=== PATIENT | female | born 1955 | race Caucasian/White ===

== ENCOUNTER 2023-04-24 12:57 | Outpatient (RCR) | payer MEDICARE, OTHER, SELFPAY | END 2023-04-24 23:59 | disposition home or self-care (01) | LOC: ROT 12:57 | PROVIDERS: ATTENDING PHYSICIAN Family Medicine | DX: I69.354 Hemiplegia and hemiparesis following cerebral infarction affecting left non-dominant side (principal); I69.398 Other sequelae of cerebral infarction; I69.310 Attention and concentration deficit following cerebral infarction; I69.318 Other symptoms and signs involving cognitive functions following cerebral infarction; Z73.6 Limitation of activities due to disability | CPT/HCPCS: 97110; 97112; 97116 ==

== ENCOUNTER → 2023-05-11 06:16 | Day surgery (SDC) | payer MEDICARE, OTHER, SELFPAY | LOC: GI 06:16 | PROVIDERS: ATTENDING PHYSICIAN Internal Medicine Gastroenterology | DX: Z12.11 Encounter for screening for malignant neoplasm of colon (principal) | CPT/HCPCS: G0105 ==

== ENCOUNTER → 2023-05-17 13:27 | Outpatient (REF) | payer MEDICARE, OTHER, SELFPAY ==
[2023-05-17 14:08] LABS: % Basophils 0.8 % (0-2); % Eosinophils 3.1 % (0-6); % Immature Granulocytes 0.3 % (0-0.5); % Monocytes 8.3 % (1.7-9.3); % Neutrophils 69.5 % (42.2-75.2); Absolute Eosinophils 0.1 10^3/uL (0-0.7); Absolute Lymphocytes 0.7 10^3/uL (1.2-3.4); Absolute Monocytes 0.3 10^3/uL (0.1-0.6); Absolute Neutrophils 2.7 10^3/uL (1.4-6.5); Hematocrit 31.4 % (37.0-47.0); Hemoglobin 10.6 g/dL (12.0-16.0); Mean Corp Hgb Conc. 33.8 g/dL (33.0-37.0); Mean Corpuscular Hgb 31.1 pg (27.0-31.0); Mean Corpuscular Volume 92.1 fL (81.0-99.0); Mean Platelet Volume 10.7 fL (7.4-10.4); Nucleated Red Blood Cells % 0 %; Platelet Count 236 10^3/uL (130-400); Red Blood Cell Count 3.41 10^6/uL (4.20-5.40); Red Cell Dist. Width 14.1 % (11.5-14.5); White Blood Cell Count 3.8 10^3/uL (4.8-10.8)
[2023-05-17 14:25] LABS: ALT (SGPT) 49 U/L (0-35); AST (SGOT) 43 U/L (14-36); Alkaline Phosphatase 47 U/L (38-126); Blood Urea Nitrogen 18 mg/dl (7-17); Calcium 8.7 mg/dl (8.4-10.2); Carbon Dioxide 26 mmol/L (22-30); Chloride 100 mmol/L (98-107); Glucose 91 mg/dl (70-99); Potassium 4.1 mmol/L (3.5-5.1); Sodium 130 mmol/L (135-145); Total Bilirubin 0.4 mg/dl (0.2-1.3); eGFR > 60.00
[2023-05-17 14:26] LABS: Erythrocyte Sed Rate 8 mm/hour (0-20)
[2023-05-20 07:55] LABS: ANA, IgG Reflex to HEp-2 None Detected (None Detected)
== END ==
LOC: REG 13:27
PROVIDERS: ATTENDING PHYSICIAN Internal Medicine; FAMILY PHYSICIAN Family Medicine
DX: G89.29 Other chronic pain (principal); I61.9 Nontraumatic intracerebral hemorrhage, unspecified; M19.90 Unspecified osteoarthritis, unspecified site; M32.9 Systemic lupus erythematosus, unspecified; M54.40 Lumbago with sciatica, unspecified side; M79.641 Pain in right hand; M79.642 Pain in left hand
CPT/HCPCS: 36415; 80053; 85025; 85652; 86038; 86140

== ENCOUNTER 2023-05-24 11:06 | Outpatient (RCR) | payer MEDICARE, OTHER, SELFPAY | END 2023-05-24 23:59 | disposition home or self-care (01) | LOC: ROT 11:06 | PROVIDERS: ATTENDING PHYSICIAN Family Medicine | DX: I69.354 Hemiplegia and hemiparesis following cerebral infarction affecting left non-dominant side (principal); I69.310 Attention and concentration deficit following cerebral infarction; I69.318 Other symptoms and signs involving cognitive functions following cerebral infarction; I69.398 Other sequelae of cerebral infarction; Z73.6 Limitation of activities due to disability; R26.89 Other abnormalities of gait and mobility | CPT/HCPCS: 97110; 97112; 97116 ==

== ENCOUNTER → 2023-05-24 12:20 | Outpatient (REF) | payer MEDICARE, OTHER, SELFPAY ==
[2023-05-24 13:39] LABS: % Basophils 0.8 % (0-2); % Eosinophils 3.5 % (0-6); % Immature Granulocytes 0.3 % (0-0.5); % Lymphocytes 19.2 % (20.5-51.1); % Monocytes 10.4 % (1.7-9.3); % Neutrophils 65.8 % (42.2-75.2); Absolute Eosinophils 0.1 10^3/uL (0-0.7); Absolute Lymphocytes 0.7 10^3/uL (1.2-3.4); Absolute Monocytes 0.4 10^3/uL (0.1-0.6); Absolute Neutrophils 2.5 10^3/uL (1.4-6.5); Hematocrit 32.8 % (37.0-47.0); Mean Corp Hgb Conc. 33.5 g/dL (33.0-37.0); Mean Corpuscular Hgb 31.3 pg (27.0-31.0); Mean Corpuscular Volume 93.4 fL (81.0-99.0); Nucleated Red Blood Cells % 0 %; Platelet Count 234 10^3/uL (130-400); Red Blood Cell Count 3.51 10^6/uL (4.20-5.40); Red Cell Dist. Width 14.1 % (11.5-14.5); White Blood Cell Count 3.8 10^3/uL (4.8-10.8)
[2023-05-24 14:05] LABS: ALT (SGPT) 32 U/L (0-35); AST (SGOT) 30 U/L (14-36); Alkaline Phosphatase 43 U/L (38-126); Blood Urea Nitrogen 24 mg/dl (7-17); Calcium 9.5 mg/dl (8.4-10.2); Carbon Dioxide 28 mmol/L (22-30); Chloride 98 mmol/L (98-107); Glucose 78 mg/dl (70-99); Potassium 4.2 mmol/L (3.5-5.1); Sodium 134 mmol/L (135-145); Total Bilirubin 0.5 mg/dl (0.2-1.3); eGFR > 60.00
[2023-05-24 14:17] LABS: Erythrocyte Sed Rate 8 mm/hour (0-20)
== END ==
LOC: REG 12:20
PROVIDERS: ATTENDING PHYSICIAN Internal Medicine; FAMILY PHYSICIAN Family Medicine
DX: I61.9 Nontraumatic intracerebral hemorrhage, unspecified (principal); G89.29 Other chronic pain; M19.90 Unspecified osteoarthritis, unspecified site; M54.40 Lumbago with sciatica, unspecified side; M79.641 Pain in right hand; M79.642 Pain in left hand
CPT/HCPCS: 36415; 80053; 85025; 85652; 86140

== ENCOUNTER → 2023-06-01 15:49 | Outpatient (REF) | payer MEDICARE, OTHER, SELFPAY ==
[2023-06-01 16:35] LABS: Urine Albumin Trace (Neg - Trace); Urine Bilirubin Negative (Negative); Urine Character Clear (Clear); Urine Color Yellow; Urine Glucose Negative (Negative); Urine Ketone Negative (Negative); Urine Leukocyte Negative (Negative); Urine Nitrite Negative (Negative); Urine Occult Blood Negative (Negative); Urine Specific Gravity 1.025 (<1.030); Urine Urobilinogen Negative (Neg - 1+)
== END ==
LOC: REG 15:49
PROVIDERS: ATTENDING PHYSICIAN Obstetrics & Gynecology; FAMILY PHYSICIAN Family Medicine
DX: N39.0 Urinary tract infection, site not specified (principal)
CPT/HCPCS: 81003; 87086

== ENCOUNTER → 2023-06-08 11:53 | Outpatient (REF) | payer MEDICARE, OTHER, SELFPAY | LOC: RAD 11:53 | PROVIDERS: ATTENDING PHYSICIAN Emergency Medicine; FAMILY PHYSICIAN Family Medicine | DX: S79.911A Unspecified injury of right hip, initial encounter (principal) | CPT/HCPCS: 73502 ==

== ENCOUNTER 2023-06-10 17:54 | Emergency (ER) | payer MEDICARE, OTHER, SELFPAY ==
[2023-06-10 17:55] VITALS: BP 167/94
[2023-06-10 19:47] VITALS: BP 137/69
--- NOTE | 2023-06-10 20:00 | EDRN ---
Pt came out of room with coat on while this RN printed radiology paper for pt to go to CT. Pt was going to leave 'I'm sure I'm fine. It's been 2 hours and if there's a bleed, there's nothing that can be done.' This RN encouraged pt to stay and
have the CT done. Pt agreeable and was wheeled to CT by EDT.
--- NOTE | 2023-06-10 20:48 | EDRN ---
Pt came out of the room and said she was leaving. Reminded pt this RN just told Nilda Painting NP that the CT reports are read. Pt said she was going to leave anyway 'It's already been 3 hours.' This RN asked pt to stay a little longer since she has
waited this long to get her results, give Nilda Painting NP a chance to give her the results. Pt declined stating 'I'm sure everything is fine, I'm just going to go.' Despite multiple attempts to get pt to stay for results, pt left ambulatory using a
cane. Gait steady.
--- NOTE | 2023-06-10 20:53 | ED.GENMED ---
History of Present Illness
General
Chief Complaint: Fall
Source: patient
Exam Limitations: none
Time Seen by Provider: 06/10/23 18:11
Nursing documentation reviewed up to this point in time: agreed with
Travel History
Have you had any contact with someone who has COVID-19?: No
Do you have any symptoms of coronavirus? Fever > 100 degrees, chills, cough, shortness of breath, sore throat, loss of taste or smell, muscle aches, or headache?: No
History of Present Illness
History of Present Illness:
Patient is a 67-year-old female who was outside at a park and fell back hitting her head on grass. She reports it was very windy she has a history intracranial hemorrhage with left-sided weakness and with the wind and her balance she fell back.
She denies any headache however after having history of intracranial hemorrhage in the past she presented to the ER for evaluation of head injury. She is not on blood thinners. She denies any headache loss of consciousness nausea vomiting. Denies
any extremity injury. Patient reports she landed on her right side but denies any actual bony pain.
Past History
Past History
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
ED Past Surgical History: (X 3) and Other (Surgery for deviated septum, bilateral foot surgery, Brain surgerym facial surgery )
Social History
Tobacco: Former smoker
Alcohol: None
Personal:
Living: assisted living
Review of Systems
Review of Systems
Allergies reviewed?: Yes
All Other Systems: ROS reviewed and negative except as documented in HPI and ROS
Constitutional: Reports no symptoms
Respiratory: Reports no symptoms
Cardiac: Reports no symptoms
ABD/GI: Reports no symptoms; Denies nausea or vomiting
Musculoskeletal: Denies neck pain or back pain
Skin: Reports no symptoms
Neurological: Reports no symptoms; Denies dizzy, headache or weakness
Hematologic/Lymphatic: Reports no symptoms
Phy Exam
General Physical Exam
General Presentation: no apparent distress
General age: appears stated age
General Skin: warm and dry
General Habitus: normal
General Mental: alert
General Hydration: appears well hydrated
Eye Exam
Eye Exam: PERRL and EOMI
Eye Exam General: PERRL: bilateral and EOM intact: bilateral
Pupil Exam: Bilateral: round and reactive
Neurological Exam
Neurological Exam: alert and oriented x3
[place] Coma Scale
Eye Opening: Spontaneous
Verbal Response: Oriented
Motor Response: Obeys Commands
GCS Total Score: 15
Musculoskeletal Exam
Musculoskeletal Exam: other (Full range of motion all extremities no bony tenderness no obvious head injury on exam no bony cervical thoracic or lumbar tenderness)
Skin Exam
Skin Exam: normal color and warm/dry
Psychiatric Exam
Psychiatric Exam: normal mood/affect
Course
Orders/Labs/Results
Orders:
Orders
06/10/23 18:[address] Cervical Spine W/o Iv Contr Urgent
Comment:
Reason For Exam: trauma
CT Head W/o Iv Contrast Urgent
Comment:
Reason For Exam: trauma
Vital Signs
Initial and Last Documented VS:
Initial Vital Signs
Temp Pulse Resp BP Pulse Ox
97.8 F 65 18 167/94 99
06/10/23 17:55 06/10/23 17:55 06/10/23 17:55 06/10/23 17:55 06/10/23 17:55
Last Documented Vital Signs
Temp Pulse Resp BP Pulse Ox
97.8 F 79 14 137/69 97
06/10/23 17:55 06/10/23 19:47 06/10/23 19:47 06/10/23 19:47 06/10/23 19:47
MDM/Problems Addressed
Differential Diagnosis Includes:
Not limited to head injury, intracranial hemorrhage less likely cervical injury
MDM/Problems Addressed:
Patient is a 67-year-old female not on blood thinners who describes mechanical fall hitting the back of her head on grass. She does have history of intracranial hemorrhage and presented to the ER for evaluation. She is no longer on blood thinners
as documented. She has no headache. She presents awake alert no acute distress no obvious injury on exam CT head and cervical spine negative. Patient has no bony injury. Patient left prior to receiving d/c instructions.
Chronic conditions affecting care:
History of intracranial hemorrhage in past
*Critical Care Note
Total Time (30-74mins, 75-104mins- exclusive of procedures): Not Applicable
ED Attending Note
-
Portions of this chart may have been created with voice recognition software.� Occasional wrong word or��sound alike� substitutions may have occurred due to the inherent limitations of voice recognition software.
Discharge Plan
Departure
Patient Disposition: Home (Routine Discharge)
Date of Disposition: 06/10/23
Time of Disposition: 21:40
Patient with high blood pressure during this ER visit?: Yes
Covid-19: Not Applicable
Discharge Problem:
Head injury
Instructions: Head Injury in Adults (DC), BLOOD PRESSURE
Prescriptions:
No Action
vilazodone [Viibryd] 40 MG tablet
40 mg PO DAILY
atorvastatin 20 mg tablet
20 mg PO QPM
famotidine 40 mg tablet
40 mg PO BID
alendronate 70 mg tablet
70 mg PO MO
potassium chloride 10 mEq tablet extended release
10 meq PO QPM
hydrocodone-acetaminophen 10-325 mg tablet
1 tab PO Q6HPRN PRN (Reason: moderate pain)
Rx Instructions:
01/04/23 filled on 01/02/23 # 120
quetiapine 25 mg Tablet
25 mg PO HSPRN PRN (Reason: sleep)
baclofen 10 mg Tablet
10 mg PO TID
gabapentin 100 mg Capsule
100 mg PO QIDPRN PRN (Reason: nerve pain)
timolol maleate 0.5 % Drops
1 drp LEFT EYE BID
bupropion HCl 300 mg Tablet Extended Release 24 Hr
300 mg PO DAILY
Patient Comments:
01/04/23 patient takes this along with 150 mg
bupropion HCl 150 mg Tablet Extended Release 24 Hr
150 mg PO DAILY
Patient Comments:
01/04/23 patient takes this along with 300 mg
Brainstrong Memory Support 120 mg- 110 mg Tablet
1 tab PO DAILY
labetalol 200 mg Tablet
200 mg PO TID
aspirin 81 mg Tablet,Chewable
81 mg PO DAILY Qty: 30 0RF
lisinopril 5 mg Tablet
5 mg PO DAILY Qty: 30 0RF
Referrals:
Sagar Irving DO [Family Provider] -
Activity Restrictions/Additional Instructions:
Follow-up with family doctor next 2 days for reevaluation.
return for any worsening of symptoms
Interventions
Interventions:
*Risk Screen - Suicide Last Done: 06/10/23 19:47
*General Assessment Last Done: 06/10/23 17:55
*Neglect/Abuse Screening Last Done: 06/10/23 19:47
*ED COVID-19 Vaccine History Last Done: 06/10/23 17:55
*Nursing Disposition Last Done: 06/10/23 20:48
ED- Neurological Assessment Last Done: 06/10/23 19:47
ED-Skin Assessment Last Done: 06/10/23 19:47
== END 2023-06-10 20:48 | disposition home or self-care (01) ==
LOC: EMR 17:54
PROVIDERS: EMERGENCY PHYSICIAN Emergency Medicine; FAMILY PHYSICIAN Family Medicine
DX: S09.90XA Unspecified injury of head, initial encounter (principal); W19.XXXA Unspecified fall, initial encounter; I10 Essential (primary) hypertension; Z87.891 Personal history of nicotine dependence; Z86.73 Personal history of transient ischemic attack (TIA), and cerebral infarction without residual deficits
CPT/HCPCS: 99284; 70450; 72125

== ENCOUNTER → 2023-06-21 13:08 | Outpatient (REF) | payer MEDICARE, OTHER, SELFPAY | LOC: WDC 13:08 | PROVIDERS: ATTENDING PHYSICIAN Obstetrics & Gynecology; FAMILY PHYSICIAN Family Medicine | DX: Z12.31 Encounter for screening mammogram for malignant neoplasm of breast (principal) | CPT/HCPCS: 77063; 77067 ==

== ENCOUNTER 2023-07-01 19:03 | Inpatient (IN) | payer MEDICARE, OTHER, SELFPAY ==
[2023-07-01] VITALS (23 sets, daily range): BP systolic 104–163; BP diastolic 67–88; BMI 20.7; BMI 20.6
[2023-07-01] MEDS: DILAUDID 0.5 MG IV ×2 (16:58→22:39)
--- NOTE | 2023-07-01 17:21 | ED.MUSCINJ ---
HPI-Injury
General
Chief Complaint: Musculo-Skeletal Complaint
Source: patient
Time Seen by Provider: 07/01/23 14:39
Travel History
Have you had any contact with someone who has COVID-19?: No
Do you have any symptoms of coronavirus? Fever > 100 degrees, chills, cough, shortness of breath, sore throat, loss of taste or smell, muscle aches, or headache?: No
History of Present Illness-Injury
Initial Injury comments:
67-year-old female presents complaining of right wrist pain after mechanical fall earlier today. She missed a step going out of her house and fell forward and landed on her right hand. She has a history of hemorrhagic stroke leaving her with
left-sided deficit. She has no functional use of the left arm. She typically ambulates with a cane with her right hand. She lives by herself. She did not hit her head. She denies headache or neck pain. No other complaints at this time
Past History
Past History
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
ED Past Surgical History: (X 3) and Other (Surgery for deviated septum, bilateral foot surgery, Brain surgerym facial surgery )
Social History
Tobacco: Former smoker
Alcohol: None
Personal:
Living: assisted living
Phy Exam
Physical Exam
Physical Exam:
General: Well-appearing female no acute respiratory distress
HEENT: Normocephalic atraumatic
Heart: Regular rate and rhythm no murmurs
Lungs: Clear to auscultation bilaterally no wheezing
Abdomen: Soft nontender nondistended no guarding or
Musculoskeletal exam: Right wrist swollen ecchymotic and deformed. She is tender distally. She is able to move all of her fingers. The right elbow and shoulder are nontender
Neurologic: Chronic left-sided deficit noted otherwise alert and oriented good sensation to right hand
Vascular: 2+ radial pulse right wrist
Injury Course
Orders/Labs/Results
Orders:
Orders
07/01/23 14:38
Wrist, Right 3 Views [CR Wrist - Right Min 3 Views] Urgent
Comment:
Reason For Exam: fall, pain
07/01/23 16:02
Propofol [Diprivan] 20 ml .ROUTE .STK-MED
07/01/23 16:40
CR Wrist - Right Min 2 Views Urgent
Reason For Exam: post reduction
07/01/23 16:54
HYDROmorphone [Dilaudid] 0.5 mg IV NOW STA
Procedures
Moderate Sedation
ASA Risk Score: Class II
Chart and allergies reviewed: Yes
Consent for anesthesia obtained: Yes
Time out completed (validating right patient & procedure): Yes
History of difficult intubation: No
Airway free of obstruction: Yes
Patient has a gag reflex: Yes
Patient is able to open mouth: Yes
Patient has no dentures: Yes
Patient has no loose teeth: Yes
Medication administered by Provider during Moderate Sedation: IV Propofol (mg)
Total dose administered: 40
Time drug administered: 16:31
Start Time: 16:31
Stop Time: 16:37
MDM/Problems Addressed
Differential Diagnosis Includes:
Mechanical fall with right wrist pain and deformity. Question fracture versus dislocation or both.
I have personally visualized x-rays which demonstrate angulated fracture of the distal radius at extra-articular. There is no obvious associated injury to the ulnar
Discussed x-ray findings with orthopedics. It was recommended that we reduce the fracture in the emergency room. Verbal consent was obtained for moderate sedation and closed reduction. Sedation performed by emergency room attending. 40 mg of
propofol required. The wrist was reduced by this provider using hyperextension longitudinal traction and then dorsally applied pressure. The hand and arm was then wrapped in a sugar-tong fashion using cast padding 2 inch OCL and William bandages.
Postreduction films demonstrate successful reduction of the fracture.
Patient has significant medical history and social issue that poses a challenge for discharge. She lives by herself and has no left-sided function. She relies on her right hand for ambulation with a cane. Given this, discharge home would be
unsafe. Will keep in hospital for further evaluation. Ortho to see patient in the morning and recommend surgery in the next day or 2.
*Critical Care Note
Total Time (30-74mins, 75-104mins- exclusive of procedures): Not Applicable
ED Attending Note
-
Portions of this chart may have been created with voice recognition software.� Occasional wrong word or��sound alike� substitutions may have occurred due to the inherent limitations of voice recognition software.
Discharge Plan
Departure
Patient Disposition: Admit
Date of Disposition: 07/01/23
Time of Disposition: 17:26
Admit to: Med/Surg
Presentation/result/management discussed w/ accepting MD/DO: Hospitalist
Discharge Problem:
Distal radial fracture
Prescriptions:
No Action
vilazodone [Viibryd] 40 MG tablet
40 mg PO DAILY
atorvastatin 20 mg tablet
20 mg PO QPM
famotidine 40 mg tablet
40 mg PO BID
alendronate 70 mg tablet
70 mg PO MO
potassium chloride 10 mEq tablet extended release
10 meq PO QPM
hydrocodone-acetaminophen 10-325 mg tablet
1 tab PO Q6HPRN PRN (Reason: moderate pain)
Rx Instructions:
01/04/23 filled on 01/02/23 # 120
quetiapine 25 mg Tablet
25 mg PO HSPRN PRN (Reason: sleep)
baclofen 10 mg Tablet
10 mg PO TID
gabapentin 100 mg Capsule
100 mg PO QIDPRN PRN (Reason: nerve pain)
timolol maleate 0.5 % Drops
1 drp LEFT EYE BID
bupropion HCl 300 mg Tablet Extended Release 24 Hr
300 mg PO DAILY
Patient Comments:
01/04/23 patient takes this along with 150 mg
bupropion HCl 150 mg Tablet Extended Release 24 Hr
150 mg PO DAILY
Patient Comments:
01/04/23 patient takes this along with 300 mg
Brainstrong Memory Support 120 mg- 110 mg Tablet
1 tab PO DAILY
labetalol 200 mg Tablet
200 mg PO TID
aspirin 81 mg Tablet,Chewable
81 mg PO DAILY Qty: 30 0RF
lisinopril 5 mg Tablet
5 mg PO DAILY Qty: 30 0RF
Referrals:
Sagar Irving DO [Family Provider] -
Interventions
Interventions:
*Risk Screen - Suicide Last Done: 07/01/23 14:33
*General Assessment Last Done: 07/01/23 14:33
*Neglect/Abuse Screening Last Done: 07/01/23 14:33
ED- Fall Risk Assessment Last Done: 07/01/23 17:24
*ED COVID-19 Vaccine History Last Done: 07/01/23 17:24
ED-Musculoskeletal Assessment Last Done: 07/01/23 15:20
Discharge Date and Time
Print Language: MALAY
--- NOTE | 2023-07-01 18:59 | HPS.HSE ---
Family Physician
-
Family Physician: Sagar Irving
Chief Complaint
-
fall, wrist pain
History of Present Illness
Patient is a 67-year-old female who lives alone and walks with a cane. She has had a stroke in the past and has limited movement of her left arm and has a brace on her left leg. She states that since her stroke, sometimes her knee does not bend.
She stepped down and fell and landed on her right arm. She has a fracture of the distal right radius which was reduced to the emergency department. Orthopedics is aware of the patient and we are asked to admit.
Medical History
Past Medical History
Past Medical History: Reports Other
Additional Past Medical History:
Essential hypertension
Hyperlipidemia
Previous stroke
Possible rheumatoid arthritis undiagnosed
Osteoporosis
Past Surgical History: Reports Other
Additional Past Surgical History:
3 C-sections
5 bone graft
Social History
Tobacco: Non-smoker
Alcohol: None
Drug: None
Living: Alone
Family History
Family History: Not pertinent
Allergies / Home Medications
Allergies reflects when Allergies were last updated in [employer].
Home Medications with original date entered in [employer]
Allergy/Medication List:
Not reconciled
Review of Systems
-
History Source: Patient
A 12 point ROS was completed and negative except as noted: Yes
Constitutional: Reports No Symptoms
EENT: Reports No Symptoms
Respiratory: Reports No Symptoms
Cardiac: Reports No Symptoms
Abdomen/GI: Reports No Symptoms
: Reports No Symptoms
Musculoskeletal: Reports Other (Right wrist/arm pain)
Skin: Reports No Symptoms
Neurological: Reports Other (Previous stroke with limited mobility of the left arm, brace on left leg); Denies Dizzy, Headache or Weakness
Endocrine: Reports No Symptoms
Hematologic/Lymphatic: Reports No Symptoms
Physical Exam
Vital Signs
Vital Signs
Temp Pulse Resp BP Pulse Ox
98.0 F 76 11 154/84 97
07/01/23 16:51 07/01/23 18:30 07/01/23 18:30 07/01/23 18:00 07/01/23 17:45
Physical Exam
General: Well Developed, No Apparent Distress and Appears Chronically Ill
HEENT: NormoCephalic, Anicteric and Atraumatic; No Oxygen
Respiratory: Clear; No Wheezes, Rales, Rhonchi or Crackles
Cardiac: S1/S2, Regular Rhythm and Murmur
GI: Soft, Non Tender, Non Distended and Normal Bowel Sounds
Musculoskeletal: No Clubbing, No Cyanosis and No Edema
Skin: Warm
Neuro: Awake, Alert, Facial Droop (Left side) and Other (Brace on left leg, contracted of the left arm, hand)
Psych: Calm
Impression/Plan
-
Patient is a 67-year-old female
Medication list also not reconciled at time of admission--I did review the list with the patient, ordered what she told me she takes
Mechanical fall�no prodrome�distal right radial fracture--reduced in the emergency department--ADMIT--no labs were ordered on admission, cannot clear patient for surgery until labs/EKG are back--consult orthopedics, pain control--PT/OT--will likely
need placement at discharge
Previous stroke with left-sided weakness--uses a brace on left leg--not much mobility of the left arm--uses cane in the right arm--now broken--PT/OT--consider physiatry evaluation--continue aspirin--continue baclofen, gabapentin, hold
hydrocodone/acetaminophen
Osteoporosis--continue weekly Fosamax on Mondays
Undiagnosed rheumatoid arthritis--patient is being evaluated for this--started methotrexate 1 month ago--continue for now--takes 20 mg every Sunday (did not take this past Sunday)--continue folic acid 1 mg daily
Essential hypertension--continue losartan and labetalol with parameters
Hyperlipidemia--continue atorvastatin
Insomnia--continue quetiapine
Anxiety--continue bupropion
DVT prophylaxis--sequential teds
CODE STATUS--full code
--- NOTE | 2023-07-01 20:00 | EDRN ---
Report received, introduced myself to patient, she voiced wanting her medical results and plans to be discussed in private, informed nurse who will be taking her upstairs as well, also medicated for pain prior to her going upstairs
[2023-07-01 20:03] LABS: Hematocrit 30.2 % (37.0-47.0); Hemoglobin 10.7 g/dL (12.0-16.0); Mean Corp Hgb Conc. 35.4 g/dL (33.0-37.0); Mean Corpuscular Hgb 31.9 pg (27.0-31.0); Mean Corpuscular Volume 90.1 fL (81.0-99.0); Mean Platelet Volume 10.4 fL (7.4-10.4); Platelet Count 186 10^3/uL (130-400); Red Blood Cell Count 3.35 10^6/uL (4.20-5.40); Red Cell Dist. Width 14.6 % (11.5-14.5); White Blood Cell Count 3.9 10^3/uL (4.8-10.8)
[2023-07-01] MEDS: MORPHINE SULFATE 2 MG IV (20:09)
[2023-07-01 20:13] LABS: INR 1.06; PT 13.6 Sec (11.4-14.6)
[2023-07-01 20:15] LABS: APTT 27.2 Sec (23.4-35.0)
[2023-07-01 20:17] LABS: ALT (SGPT) 30 U/L (0-35); AST (SGOT) 34 U/L (14-36); Albumin 4.2 g/dl (3.5-5.0); Alkaline Phosphatase 57 U/L (38-126); Blood Urea Nitrogen 13 mg/dl (7-17); Calcium 9.6 mg/dl (8.4-10.2); Carbon Dioxide 26 mmol/L (22-30); Chloride 101 mmol/L (98-107); Estimated Creatinine Clearance 63 ml/min; Glucose 80 mg/dl (70-99); Magnesium 2.2 mg/dl (1.6-2.3); Potassium 4.2 mmol/L (3.5-5.1); Sodium 131 mmol/L (135-145); Total Bilirubin 0.5 mg/dl (0.2-1.3); Total Protein 6.2 g/dl (6.3-8.2); eGFR > 60.00
[2023-07-01] MEDS: PEPCID 40 MG PO (20:57)
[2023-07-01] MEDS: TYLENOL 650 MG PO (20:57)
[2023-07-01] MEDS: TRANDATE 200 MG PO (20:58)
[2023-07-01] MEDS: LIORESAL 20 MG PO (20:58)
[2023-07-01] MEDS: ROXICODONE 5 MG PO (20:58)
--- NOTE | 2023-07-01 21:00 | PTCARENOTE ---
Pt. received to 2S from ED via stretcher around 2100. Pt. able to scoot over to room bed without assistance. Pt. A&Ox3, in NAD, even and unlabored breathing on RA, states mild pain, R arm wrapped in PHIL bandage, finger warm, cap refill <3 seconds,
no numbness or tingling, and able to wiggle fingers slightly. Bed locked and in lowest position, bed rails in place, questions and concerns addressed at time of assessment, and touch call chowdhury in place d/t pt's limited mobility in L hand/arm. Will
monitor.
[2023-07-01] MEDS: SENOKOT PO (21:44)
[2023-07-01] MEDS: COLACE PO (21:44)
[2023-07-01] MEDS: NEURONTIN 100 MG PO (22:09)
[2023-07-02] MEDS: TYLENOL PO ×2 (01:29→04:55)
[2023-07-02] MEDS: MORPHINE SULFATE 2 MG IV (02:09)
[2023-07-02] MEDS: FLUSH (NSS) 2 FLUSH IV (02:10)
[2023-07-02 06:40] LABS: Hematocrit 32.2 % (37.0-47.0); Hemoglobin 10.8 g/dL (12.0-16.0); Mean Corp Hgb Conc. 33.5 g/dL (33.0-37.0); Mean Corpuscular Hgb 31.6 pg (27.0-31.0); Mean Corpuscular Volume 94.2 fL (81.0-99.0); Mean Platelet Volume 11.4 fL (7.4-10.4); Platelet Count 188 10^3/uL (130-400); Red Blood Cell Count 3.42 10^6/uL (4.20-5.40); Red Cell Dist. Width 14.6 % (11.5-14.5); White Blood Cell Count 3.5 10^3/uL (4.8-10.8)
[2023-07-02 07:04] LABS: Blood Urea Nitrogen 15 mg/dl (7-17); Calcium 9.5 mg/dl (8.4-10.2); Carbon Dioxide 27 mmol/L (22-30); Chloride 102 mmol/L (98-107); Estimated Creatinine Clearance 55 ml/min; Glucose 68 mg/dl (70-99); Magnesium 2.3 mg/dl (1.6-2.3); Potassium 4.3 mmol/L (3.5-5.1); Sodium 136 mmol/L (135-145); eGFR > 60.00
--- NOTE | 2023-07-02 07:27 | W.PN.HOSP.TC ---
Today's Communication/Plan
-
.
Assessment / Plan
Assessment / Plan
Physical Exam
General: No Apparent Distress, Comfortable and Conversant
HEENT: Anicteric and Moist mucous membranes
Respiratory: Clear
Cardiac: S1/S2 and Regular Rhythm
GI: Soft, Non Tender and Non Distended
Rectal: No Maroon Stools
Genito-urinary: No costovertebral tender
Musculoskeletal: No Clubbing, No Cyanosis and No Edema. Right upper extremity in dressing.
Skin: Warm; No Jaundice
Neuro: AO x 3 and No Sensory Deficits; No Slurred Speech or Tremors
Psych: Calm and Intact Judgment/Insight.
Mechanical fall�no prodrome�distal right radial fracture due to combination of osteoporosis and fall. - It was reduced in the emergency department--ADMIT--
Ortho recommended surgical fixation right distal radius fracture.
Appreciate ortho help
# Acute on chronic pain syndrome with opioid dependency
Will l put her back on Vicodin As she requested
She reported better pain control with Dilaudid.
# Hyponatremia, mild , resolved.
#Hyperlipidemia--continue atorvastatin
#Insomnia--continue quetiapine
#Anxiety--continue bupropion
#Osteoporosis--continue weekly Fosamax on Mondays
#Undiagnosed rheumatoid arthritis--patient is being evaluated for this--started methotrexate 1 month ago--continue for now--takes 20 mg every Sunday (did not take this past Sunday)--continue folic acid 1 mg daily
#Primary hypertension,
Slightly uncontrolled, will add PRN Hydralazine
c/w home meds
#History of depression, mood is pleasant, will continue home medication.
#History of CVA with left mild hemiaplasia.�She declined to take aspirin despite our recommendations. Continue baclofen.� Continue statin.� PT/OT.
Total time spent to see the patient, examine the patient on the floor, review data and lab results, discuss treatment plan with patient, nursing staff around 55 minutes.
Anticipated Discharge: > 48 hours
Subjective/Interval History
-
Date of Service: July 02, 2023
Objective Data
-
Labs:
Laboratory Results
07/01/23 07/01/23 07/02/23
19:46 19:46 05:06
WBC 3.9 L 3.5 L
Hgb 10.7 L 10.8 L
Hct 30.2 L 32.2 L
Plt Count 186 188
PT 13.6
INR 1.06
APTT Cancelled 27.2
Sodium 131 L 136
Potassium 4.2 4.3
Chloride 101 102
Carbon Dioxide 26 27
BUN 13 15
Creatinine 0.7 0.8
Glucose 80 68 L
Calcium 9.6 9.5
Total Bilirubin 0.5
AST 34
ALT 30
Alkaline Phosphatase 57
Vital Signs:
Vital Signs
Temp Pulse Resp BP Pulse Ox
97.7 F 60 18 156/81 96
07/01/23 23:35 07/01/23 23:35 07/01/23 23:35 07/01/23 23:35 07/01/23 23:35
I&O
07/01/23 07/02/23 07/03/23
06:59 06:59 06:59
Intake Total 240 / 240
Output Total 800 / 800
Balance -560 / -560
[2023-07-02 07:42] VITALS: BP 165/90
[2023-07-02] MEDS: DILAUDID 0.5 MG IV ×4 (07:50→20:09)
[2023-07-02] MEDS: FOSAMAX 70 MG PO (07:50)
--- NOTE | 2023-07-02 08:14 | W.PN.UPDATE ---
Update Note
Progress Note Update
Saw and examined patient this morning. Discussed surgery vs non surgical treatment. Given patient's left upper extremity limitations, patient opted for surgical fixation right distal radius fracture.
Plan for OR tomorrow for ORIF right distal radius fracture
Formal consult to follow
[2023-07-02] MEDS: TRANDATE 200 MG PO ×3 (09:12→22:18)
[2023-07-02] MEDS: WELLBUTRIN XL (24 hour extended release) 150 MG PO (09:12)
[2023-07-02] MEDS: FOLVITE 1 MG PO (09:12)
[2023-07-02] MEDS: WELLBUTRIN XL (24 hour extended release) 300 MG PO (09:12)
[2023-07-02] MEDS: PEPCID 40 MG PO ×2 (09:12→20:16)
[2023-07-02] MEDS: TYLENOL 650 MG PO (09:12)
[2023-07-02] MEDS: COZAAR 50 MG PO (09:13)
[2023-07-02] MEDS: LIORESAL 20 MG PO ×4 (09:14→22:15)
[2023-07-02] MEDS: COLACE 100 MG PO ×2 (09:15→20:16)
[2023-07-02] MEDS: SENOKOT PO ×2 (09:21→20:27)
--- NOTE | 2023-07-02 10:16 | CM ---
Patient seen bedside, initial assessment completed. Patient reports she resides alone in a two story home, four steps to enter. Patient reports using a cane for ambulation, reports [facility] in past, reports [facility] in past, patient
reports she had a terrible experience there. Patient confirms PCP Dr. Irving, pharmacy [facility] in [facility]. Per chart, patient for OR tomorrow. CM will continue to follow for discharge planning needs.
Plan; OR tomorrow, follow for PT/OT recommendations.
[2023-07-02 10:48] VITALS: BP 134/74
[2023-07-02] MEDS: NEURONTIN 100 MG PO ×2 (10:49→20:17)
[2023-07-02 11:09] VITALS: BP 134/74; PULSE 69; O2SAT 98
[2023-07-02 11:11] VITALS: BP 134/74; PULSE 69; O2SAT 98
[2023-07-02 15:45] VITALS: BP 151/97
[2023-07-02] MEDS: LIPITOR 20 MG PO (17:22)
--- NOTE | 2023-07-02 20:07 | CON.ORTHO ---
Consultation
-
Date/Time Consultation Requested: 3:30 PM 07/01/2023
Date/Time Consultation Performed: 740 AM 07/02/2023
Requesting Provider: ED
Performing Provider: Franky
Reason for Consultation: Right distal radius fracture
Consultation - Orthopedics
History
HPI: 67-year-old female presented to the [facility] emergency department status post fall with complaints of right wrist pain. She was subsequently diagnosed with right distal radius fracture and underwent a closed reduction in the emergency
department. She was admitted to the hospitalist service for amatory dysfunction as she has a history of previous stroke with deficits left upper and lower extremities. Orthopedics was consulted for further evaluation and treatment. Patient
reports pain localized to the right wrist. She does report the pain has improved since reduction. She denies any elbow pain. She denies any pain in any other other extremity or joints. She does report using a cane at baseline. She does live at
home alone.
Allergies / Home Medications
Past medical history: Previous stroke, hyperlipidemia, hypertension, possible rheumatoid arthritis recently started on methotrexate
Past surgical history: , bone graft
Social history: Non-smoker, lives alone
Family history: Not pertinent
Allergy/AdvReac Type Severity Reaction Status Date / Time
Sulfa (Sulfonamide Allergy Intermediate hives, Verified 07/01/23 14:33
Antibiotics) system
clogged/blocked
�Medication �Instructions �Recorded
vilazodone 40 mg tablet (Viibryd) 40 mg PO DAILY Mental 08/16/13
Health/Anxiety
alendronate 70 mg tablet 70 mg PO MO Osteoporosis 02/25/22
atorvastatin 20 mg tablet 20 mg PO QPM High Cholesterol 02/25/22
famotidine 40 mg tablet 40 mg PO BID Gastrointestinal Issue 02/25/22
hydrocodone 10 mg-acetaminophen 1 tab PO Q6HPRN PRN moderate pain 02/25/22
325 mg tablet
baclofen 10 mg tablet 20 mg PO QID Muscle Spasms 01/04/23
bupropion HCl 150 mg 24 hr tablet, 150 mg PO DAILY Mental 01/04/23
extended release Health/Anxiety
bupropion HCl 300 mg 24 hr tablet, 300 mg PO DAILY Mental 01/04/23
extended release Health/Anxiety
gabapentin 100 mg capsule 100 mg PO QIDPRN PRN nerve pain 01/04/23
labetalol 200 mg tablet 200 mg PO TID Blood Pressure 01/04/23
quetiapine 25 mg tablet 25 mg PO HSPRN PRN sleep 01/04/23
folic acid 1 mg tablet 1 mg PO DAILY Supplement 07/01/23
losartan 50 mg tablet 50 mg PO DAILY Blood Pressure 07/01/23
methotrexate sodium 2.5 mg tablet 20 mg PO FR Autoimmune Disorder 07/01/23
Vital Signs / Lab Results
Temp Pulse Resp BP Pulse Ox
98.5 F 76 18 151/97 96
07/02/23 15:45 07/02/23 15:45 07/02/23 15:45 07/02/23 15:45 07/02/23 15:45
07/02/23 05:06
07/02/23 05:06
10 point review systems reviewed and negative unless otherwise stated
General: Pleasant, no acute distress
Musculoskeletal right upper extremity
Right upper extremity in sugar-tong splint,
Exposed fingers warm sensate and mobile
No tenderness palpation about the elbow
No other areas of bony tenderness palpation or crepitation of long bones or joints on tertiary examination
Baseline deficits left upper and lower extremity
Distal extremity warm and pink
Diagnostic studies
X-rays right wrist show right distal radius fracture displaced with apex volar angulation status post closed reduction with significant improvement neutral alignment after reduction. There is some concern of my read for potential DRUJ injury based
on the lateral postreduction radiograph.
Assessment / Plan
67-year-old female history of stroke with residual left upper and lower extremity deficits status post fall with right distal radius fracture subsequently reduced. I had a very long discussion with the patient regarding diagnosis and treatment
options. We discussed both surgical and nonsurgical options. Given the patient's demands on her right upper extremity and significant deficits with regards to left upper extremity, we did discuss the possibility of surgical fixation to speed up
her rehabilitation process and limit the period of immobilization in a cast. After discussion, patient was in favor proceeding with open reduction internal fixation of right distal radius fracture to shorten period of immobilization. Certainly I
think this is reasonable given that manage she has on her right upper extremity. We discussed risks benefits and alternatives of surgery. We discussed the usual expected perioperative and postoperative course. After discussion, written informed
consent was obtained. There was some concern about DRUJ injury on my read of right wrist x-ray and I will plan to obtain radiographs of left wrist for comparison as well as right elbow to evaluate for possible [place] injury.
Nonweightbearing right upper extremity in splint
PT OT: Deferred to postoperative setting
N.p.o. at midnight
Pain control
DVT prophylaxis: Please hold in preparation for OR
Medical management per primary team
Plan: 2 OR tomorrow for operative fixation right distal radius fracture pending or availability and medical clearance
[2023-07-02] MEDS: NON-FORMULARY ITEM PO (20:29)
[2023-07-02] MEDS: NON-FORMULARY ITEM 40 MG PO (20:29)
[2023-07-02] MEDS: NORCO 5/325 1 TABLET PO (22:16)
[2023-07-02 23:14] VITALS: BP 152/86
[2023-07-03] VITALS (14 sets, daily range): BP systolic 107–160; BP diastolic 68–103; PULSE 77
[2023-07-03] MEDS: DILAUDID 0.5 MG IV (00:26)
[2023-07-03] MEDS: NORCO 5/325 1 TABLET PO ×2 (05:53→21:38)
--- NOTE | 2023-07-03 08:43 | W.PN.HOSP.TC ---
Today's Communication/Plan
-
.
Assessment / Plan
Assessment / Plan
Physical Exam
General: No Apparent Distress, Comfortable and Conversant
HEENT: Anicteric and Moist mucous membranes
Respiratory: Clear
Cardiac: S1/S2 and Regular Rhythm
GI: Soft, Non Tender and Non Distended
Rectal: No Maroon Stools
Genito-urinary: No costovertebral tender
Musculoskeletal: No Clubbing, No Cyanosis and No Edema. Right upper extremity in dressing.
Skin: Warm; No Jaundice
Neuro: AO x 3 and No Sensory Deficits; No Slurred Speech or Tremors
Psych: Calm and Intact Judgment/Insight.
Mechanical fall�no prodrome�distal right radial fracture due to combination of osteoporosis and fall. - It was reduced in the emergency department--ADMIT--
Ortho recommended surgical fixation right distal radius fracture.
Appreciate ortho help
# Acute on chronic pain syndrome with opioid dependency
c/w her usual dose of Vicodin. Uses PRN pain medicine. Advised to avoid excessive use, d/w nursing staff.
# Hyponatremia, mild , resolved.
#Hyperlipidemia--continue atorvastatin
#Insomnia--continue quetiapine
#Anxiety--continue bupropion
#Osteoporosis--continue weekly Fosamax on Mondays
#Undiagnosed rheumatoid arthritis--patient is being evaluated for this--started methotrexate 1 month ago--continue for now--takes 20 mg every Sunday (did not take this past Sunday)--continue folic acid 1 mg daily
#Primary hypertension,
Slightly uncontrolled, , c/w PRN Hydralazine
c/w home meds
#History of depression, mood is pleasant, will continue home medication.
#History of CVA with left mild hemiaplasia.�She saw Dr Valente in office post discharge, he stopped aspirin due to risk of hemorrhage. Continue baclofen.� Continue statin.� PT/OT.
Total time spent to see the patient, examine the patient on the floor, review data and lab results, discuss treatment plan with patient, nursing staff around 57 minutes.
Anticipated Discharge: 24 - 48 hours
Subjective/Interval History
-
Date of Service: July 03, 2023
No chest pain
No sob
Objective Data
-
Vital Signs:
Vital Signs
Temp Pulse Resp BP Pulse Ox
98.5 F 66 16 153/72 99
07/03/23 07:59 07/03/23 07:59 07/03/23 07:59 07/03/23 07:59 07/03/23 07:59
I&O
07/02/23 07/03/23 07/04/23
06:59 06:59 06:59
Intake Total 240 / 240 1200 / 1200
Output Total 800 / 800 600 / 600
Balance -560 / -560 600 / 600
[2023-07-03] MEDS: FOLVITE 1 MG PO (08:54)
[2023-07-03] MEDS: COLACE 100 MG PO ×2 (08:54→21:36)
[2023-07-03] MEDS: TRANDATE 200 MG PO ×3 (08:54→21:39)
[2023-07-03] MEDS: COZAAR 50 MG PO (08:55)
[2023-07-03] MEDS: LIORESAL 20 MG PO ×4 (08:55→21:35)
[2023-07-03] MEDS: WELLBUTRIN XL (24 hour extended release) 150 MG PO (08:55)
[2023-07-03] MEDS: WELLBUTRIN XL (24 hour extended release) 300 MG PO (08:55)
[2023-07-03] MEDS: PEPCID 40 MG PO ×2 (08:55→21:35)
[2023-07-03] MEDS: DILAUDID IV (08:56)
[2023-07-03] MEDS: NON-FORMULARY ITEM 40 MG PO (08:56)
[2023-07-03] MEDS: SENOKOT PO ×2 (09:01→21:33)
--- NOTE | 2023-07-03 09:15 | PTCARENOTE ---
At 0855, patients IV site was reddened and had a small palpable knot. Patient was going to OR. IV removed. OR staff aware. IV team made aware and will see patient when they arrive back to floor.
--- NOTE | 2023-07-03 11:55 | OR.RPT ---
Operative Report
Operative Report
Anesthesia Type:
[ ]
Operative Indications:
Right distal radius fracture, residual left upper and left lower extremity weakness loss of function secondary to history of stroke
Operative Findings :
Extra-articular distal radius fracture, right
Complications:
None
Implants:
[place] standard width distal radius volar locking plate
Procedure and Technique:
Open reduction internal fixation right distal radius fracture, extra-articular
INDICATIONS FOR PROCEDURE:
67-year-old female history of stroke residual left upper and lower extremity weakness loss of function presented status post fall with complaints of right wrist pain. She was diagnosed with a right distal radius fracture in the emergency department
and underwent
Closed reduction and splinting. She was admitted to the hospital service. Orthopedics was consulted for further evaluation and treatment. I had a long and detailed discussion with the patient regarding diagnosis and treatment options. Discussed
both surgical and nonsurgical options. Given her loss of function and weakness left upper extremity and her reliance on right upper extremity, patient elected to proceed with open reduction internal fixation of right distal radius fracture to aid
in early recovery and limited her immobilization. We discussed risks benefits and alternatives of surgery. We discussed the usual expected perioperative postoperative course. After discussion, written informed consent was obtained
OPERATIVE PROCEDURE:
Patient was seen identified the preoperative holding area. Operative extremity was marked. All questions were addressed. She was taken to the operating room after peripheral block was performed by anesthesia providers. She was placed supine on
the OR table and general anesthesia was administered. Operative extremity was then prepped and draped in a normal sterile fashion. Nonsterile tourniquet was applied. Timeout was performed again identifying the correct operative extremity.
Preoperative antibiotics were addressed. Tourniquet was inflated. Volar approach to the distal radius was taken. Sharp dissection was carried through skin and subcutaneous tissues and deep layers with attention paid to protect neurovascular and
tendinous structures. Quadratus pronator's was sharply excised off of the distal radius fracture was identified. Preliminary provisional reduction fluoroscopic images confirmed appropriate reduction. Standard with Samy distal radius plate was
chosen and placed appropriate position confirmed on fluoroscopy. Beginning proximally, bicortical fixation was placed to secure plate to bone. Distally locking screws were placed and attention was paid to ensure that screws were not prominent
dorsally. Final orthogonal imaging confirmed appropriate reduction of fracture. After reduction of fracture, DRUJ was in an appropriate position. Preoperative imaging was concerning for possible dorsal dislocation of DRUJ. The DRUJ was stressed
and supination, pronation and neutral positioning and found to be stable. Satisfied with extent surgery, wounds were copiously irrigated normal saline solution. Tourniquet was deflated hemostasis was achieved with bipolar electrocautery. Wound
was closed utilizing 3-0 Monocryl for subcutaneous layer interrupted fashion. 3-0 nylon was used to close skin. Sterile dressing was applied consisting of Xeroform, 4 x 4 gauze web roll. Patient was placed in a well-padded volar slab splint
placed by myself. Anesthesia was reversed patient was taken to PACU in stable condition. Postoperative plans include nonweightbearing to the operative extremity. Plan to see patient back in 2 weeks repeat evaluation with planned removal of
sutures and initiation of physical therapy.
Disposition:
PACU stable condition
[2023-07-03] MEDS: NSS 1000 IV (14:02)
--- NOTE | 2023-07-03 14:33 | PTCARENOTE ---
Received patient from PACU via bed around 1330 in stable condition. VS stable. NWB to RUE with sling in place. William wrap and splint in place. Call chowdhury in reach. IV team in room to assess old IV site.
--- NOTE | 2023-07-03 15:10 | CM ---
R radius fracture with ORIF today. Therapy recommendation for SNF. [employer] list provided. Awaiting preferences.
[2023-07-03] MEDS: LIPITOR 20 MG PO (17:22)
[2023-07-03] MEDS: ANCEF 5 IV (17:22)
[2023-07-03] MEDS: SEROQUEL 25 MG PO (21:37)
[2023-07-03] MEDS: NEURONTIN 100 MG PO (21:38)
[2023-07-04] VITALS (7 sets, daily range): BP systolic 125–171; BP diastolic 67–90; PULSE 87
[2023-07-04] MEDS: ANCEF 5 IV (01:40)
[2023-07-04] MEDS: NSS 1000 IV (02:48)
[2023-07-04] MEDS: NEURONTIN 100 MG PO (05:35)
[2023-07-04] MEDS: NORCO 5/325 1 TABLET PO (05:35)
--- NOTE | 2023-07-04 07:53 | W.PN.ORTHO ---
Today's Communication / Plan
-
67-year-old female postop day 1 status post open reduction internal fixation right distal radius fracture doing well
Nonweightbearing right upper extremity. Okay to bear weight through forearm with platform walker
PT OT
Pain control
Medical management per primary team
Plan to follow-up outpatient in 10 to 14 days for repeat evaluation plan removal of sutures
Subjective
.
.:
Patient resting comfortably. No acute overnight events.
Vital Signs and Labs
.
Vital Signs and Labs:
Lab Results
07/02/23 05:06
07/02/23 05:06
Temp Pulse Resp BP Pulse Ox
97.8 F 75 16 161/90 98
07/04/23 03:55 07/04/23 03:55 07/04/23 03:55 07/04/23 03:55 07/04/23 03:55
PT 13.6 Sec (11.4-14.6) 07/01/23 19:46
INR 1.06 07/01/23 19:46
Physical Exam
-
Right upper extremity MSK
Splint in place, exposed fingers warm sensate and mobile
Brisk cap refill distally
[2023-07-04] MEDS: FOLVITE 1 MG PO (08:27)
[2023-07-04] MEDS: TRANDATE 200 MG PO ×3 (08:27→21:30)
[2023-07-04] MEDS: WELLBUTRIN XL (24 hour extended release) 300 MG PO (08:28)
[2023-07-04] MEDS: LIORESAL 20 MG PO ×4 (08:28→21:30)
[2023-07-04] MEDS: COZAAR 50 MG PO (08:28)
[2023-07-04] MEDS: WELLBUTRIN XL (24 hour extended release) 150 MG PO (08:28)
[2023-07-04] MEDS: PEPCID 40 MG PO ×2 (08:28→19:54)
[2023-07-04] MEDS: NSS IV (08:31)
[2023-07-04] MEDS: NON-FORMULARY ITEM 40 MG PO (08:32)
[2023-07-04] MEDS: COLACE PO (08:37)
[2023-07-04] MEDS: SENOKOT PO (08:37)
--- NOTE | 2023-07-04 09:00 | W.PN.HOSP.TC ---
Today's Communication/Plan
-
dc in am
Assessment / Plan
Assessment / Plan
Physical Exam
General: No Apparent Distress, Comfortable and Conversant
HEENT: Anicteric and Moist mucous membranes
Respiratory: Clear
Cardiac: S1/S2 and Regular Rhythm
GI: Soft, Non Tender and Non Distended
Rectal: No Maroon Stools
Genito-urinary: No costovertebral tender
Musculoskeletal: No Clubbing, No Cyanosis and No Edema. Right upper extremity in dressing.
Skin: Warm; No Jaundice
Neuro: AO x 3 and No Sensory Deficits; No Slurred Speech or Tremors
Psych: Calm and Intact Judgment/Insight.
Mechanical fall�no prodrome�distal right radial fracture due to combination of osteoporosis and fall s/p open reduction internal fixation right distal radius fracture by Dr. Wilkins 07/03/23 . -
Ortho recommended surgical fixation right distal radius fracture.
Appreciate ortho help
# Acute on chronic pain syndrome with opioid dependency
It is challenging because patient seems to have acute pain issues. She is counseled regarding excessive use of opioid and potential over sedation especially with her thin body habitus and underlying CVA
c/w her usual dose of Vicodin. Uses PRN pain medicine. D/w nursing staff, appreciate help.
# Hyponatremia, mild , resolved.
#Hyperlipidemia--continue atorvastatin
#Insomnia--continue quetiapine
#Anxiety--continue bupropion
#Osteoporosis--continue weekly Fosamax on Mondays
#Undiagnosed rheumatoid arthritis--patient is being evaluated for this--started methotrexate 1 month ago--continue for now--takes 20 mg every Sunday (did not take this past Sunday)--continue folic acid 1 mg daily
#Primary hypertension,
Slightly uncontrolled, , c/w PRN Hydralazine
c/w home meds
#History of depression, mood is pleasant, will continue home medication.
#History of CVA with left mild hemiaplasia.�She saw Dr Valente in office post discharge, he stopped aspirin due to risk of hemorrhage. Continue baclofen.� Continue statin.� PT/OT.
Total time spent to see the patient, examine the patient on the floor, review data and lab results, discuss treatment plan with patient, nursing staff around 59 minutes.
Anticipated Discharge: Within 24 hours
Subjective/Interval History
-
Date of Service: July 04, 2023
No sob
No chest pain
No fevers
Objective Data
-
Vital Signs:
Vital Signs
Temp Pulse Resp BP Pulse Ox
98.3 F 82 18 153/87 98
07/04/23 07:30 07/04/23 08:28 07/04/23 07:30 07/04/23 08:28 07/04/23 07:30
I&O
07/03/23 07/04/23 07/05/23
06:59 06:59 06:59
Intake Total 1200 / 1200 2167 / 2167
Output Total 600 / 600 1850 / 1850
Balance 600 / 600 317 / 317
[2023-07-04] MEDS: NORCO 5/325 2 TABLET PO ×2 (11:55→18:35)
--- NOTE | 2023-07-04 16:31 | CM ---
PT recommended SNF VS Acute rehab .
[facility] reviewed chart Pt does not qualify for acute rehab.
Pt 2 nd pick is [facility] .
In care port [facility] said call when dc.
PLAN Probable [facility]
[2023-07-04] MEDS: LIPITOR 20 MG PO (17:38)
[2023-07-04] MEDS: SENOKOT 17.1999999999999993 MG PO (19:54)
[2023-07-04] MEDS: COLACE 100 MG PO (19:54)
[2023-07-05] MEDS: NORCO 5/325 2 TABLET PO ×2 (01:18→07:53)
[2023-07-05 07:08] VITALS: BP 147/84
[2023-07-05] MEDS: WELLBUTRIN XL (24 hour extended release) 150 MG PO (07:53)
[2023-07-05] MEDS: PEPCID 40 MG PO (07:53)
[2023-07-05] MEDS: WELLBUTRIN XL (24 hour extended release) 300 MG PO (07:53)
[2023-07-05] MEDS: LIORESAL 20 MG PO (07:53)
[2023-07-05] MEDS: COZAAR 50 MG PO (07:53)
[2023-07-05] MEDS: SENOKOT 17.1999999999999993 MG PO (07:53)
[2023-07-05] MEDS: COLACE 100 MG PO (07:53)
[2023-07-05] MEDS: TRANDATE 200 MG PO (07:53)
[2023-07-05] MEDS: FOLVITE 1 MG PO (07:53)
[2023-07-05] MEDS: NON-FORMULARY ITEM 40 MG PO (07:54)
--- NOTE | 2023-07-05 10:58 | W.PN.HOSP.TC ---
Today's Communication/Plan
-
dc
Assessment / Plan
Assessment / Plan
Physical Exam
General: No Apparent Distress, Comfortable and Conversant
HEENT: Anicteric and Moist mucous membranes
Respiratory: Clear
Cardiac: S1/S2 and Regular Rhythm
GI: Soft, Non Tender and Non Distended
Rectal: No Maroon Stools
Genito-urinary: No costovertebral tender
Musculoskeletal: No Clubbing, No Cyanosis and No Edema. Right upper extremity in dressing.
Skin: Warm; No Jaundice
Neuro: AO x 3 and No Sensory Deficits; No Slurred Speech or Tremors
Psych: Calm and Intact Judgment/Insight.
Mechanical fall�no prodrome�distal right radial fracture due to combination of osteoporosis and fall s/p open reduction internal fixation right distal radius fracture by Dr. Wilkins 07/03/23 . -
Ortho recommended surgical fixation right distal radius fracture.
Appreciate ortho help
# Acute on chronic pain syndrome with opioid dependency
It is challenging because patient seems to have acute pain issues. She is counseled regarding excessive use of opioid and potential over sedation especially with her thin body habitus and underlying CVA
c/w her usual dose of Vicodin. Uses PRN pain medicine. D/w nursing staff, appreciate help.
# Hyponatremia, mild , resolved.
#Hyperlipidemia--continue atorvastatin
#Insomnia--continue quetiapine
#Anxiety--continue bupropion
#Osteoporosis--continue weekly Fosamax on Mondays
#Undiagnosed rheumatoid arthritis--patient is being evaluated for this--started methotrexate 1 month ago--continue for now--takes 20 mg every Sunday (did not take this past Sunday)--continue folic acid 1 mg daily
#Primary hypertension,
Better controlled, no chest pain, no headache.
c/w home meds
#History of depression, mood is pleasant, will continue home medication.
#History of CVA with left mild hemiaplasia.�She saw Dr Valente in office post discharge, he stopped aspirin due to risk of hemorrhage. Continue baclofen.� Continue statin.� PT/OT.
Total time spent to see the patient, examine the patient on the floor, review data and lab results, discuss treatment plan with patient, nursing staff around 45 minutes.
Anticipated Discharge: Today
Subjective/Interval History
-
Date of Service: July 05, 2023
No worsening pain
Objective Data
-
Vital Signs:
Vital Signs
Temp Pulse Resp BP Pulse Ox
98.4 F 65 16 147/84 95
07/05/23 07:08 07/05/23 07:08 07/05/23 07:08 07/05/23 07:08 07/05/23 07:08
I&O
07/04/23 07/05/23 07/06/23
06:59 06:59 06:59
Intake Total 2167 / 2167 1200 / 1200
Output Total 1850 / 1850
Balance 317 / 317 1200 / 1200
--- NOTE | 2023-07-05 11:30 | W.DCSUMMARY ---
Discharge Summary
Discharge Data
Date of Admission: 07/01/23
Date of Discharge: 07/05/23
-
Pending Results: No
Hospital Course
67 years old female presented after sustaining mechanical fall at home. She did not have head trauma. She sustained distal right radial fracture. She had underlying osteoporosis. Patient was evaluated by orthopedic doctor. She underwent open
reduction internal fixation by Dr. Wilkins on July 03, 2023. No complications reported. Patient had history of chronic pain syndrome with opioid dependency. She was given intravenous Dilaudid to help control acute pain. Patient remained
hemodynamically stable. She did not have fever. She was evaluated by physical therapy and recommended long-term facility placement. She was discharged in a stable condition.
Total discharge time spent to see the patient, examine the patient on the floor, review data and lab results, discuss discharge plan with patient, case technician, nursing staff around 65 minutes.
Discharge Plan
-
Patient Disposition: Care Home/SNF
Discharge Diagnosis/Procedures: distal right radial fracture due to combination of osteoporosis and fall s/p open reduction internal fixation right distal radius fracture by Dr. Wilkins 07/03/23 . -
Additional Activity: Nonweightbearing right upper extremity. Okay to bear weight through forearm with platform walker
Referrals:
Sagar Irving DO [Family Provider] -
Daniel Wilkins MD [Active] - in two weeks
Prescriptions:
New
sennosides [Senna Laxative] 8.6 mg Tablet
17.2 mg PO HS Qty: 10 0RF
Continued
vilazodone [Viibryd] 40 MG tablet
40 mg PO DAILY
atorvastatin 20 mg tablet
20 mg PO QPM
famotidine 40 mg tablet
40 mg PO BID
alendronate 70 mg tablet
70 mg PO MO
hydrocodone-acetaminophen 10-325 mg tablet
1 tab PO Q6HPRN PRN (Reason: moderate pain)
quetiapine 25 mg Tablet
25 mg PO HSPRN PRN (Reason: sleep)
baclofen 10 mg Tablet
20 mg PO QID
gabapentin 100 mg Capsule
100 mg PO QIDPRN PRN (Reason: nerve pain)
bupropion HCl 300 mg Tablet Extended Release 24 Hr
300 mg PO DAILY
Patient Comments:
patient takes this along with 150 mg
bupropion HCl 150 mg Tablet Extended Release 24 Hr
150 mg PO DAILY
Patient Comments:
patient takes this along with 300 mg
labetalol 200 mg Tablet
200 mg PO TID
losartan 50 mg Tablet
50 mg PO DAILY
methotrexate sodium 2.5 mg Tablet
20 mg PO FR
folic acid 1 mg Tablet
1 mg PO DAILY
Discharge Orders:
Discharge Patient (As Directed); Ordered 07/05/23
Ordered By: Jose A Christensen
Discharge Date and Time
Print Language: GUINEAN
--- NOTE | 2023-07-05 11:38 | CM ---
Addendum entered by Edwin De La Cruz 07/05/23 11:48:
make up girl time 12:30 p.m. [facility] director of recreation therapy is aware
Original Note:
CM following re: discharge planning.
Reviewed pt's chart, met with pt.
pt has been notified that [facility] declined a referral and [facility] has accepted for admission. Pt expressed her understanding and expressed her agreement with going to [facility]. IMM reviewed with the pt, pt expressed her
understanding, cannot sign, pt has a copy.
CM spoke to [facility] director of recreation therapy and she confirmed that they do have a bed available and pt is accepted for admission today.
Discharge order is noted. Pt is aware, expressed her agreement and pt stated she will call her brother to notify him of discharge and going to [facility].
will arrange ambulance, BLS. PMNC completed and left with
[facility] nursing report: [phone]
Discharge instructions fax: [phone]
D/C plan: [facility] for a short term rehab.
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
== END 2023-07-05 12:55 | DRG 511 ==
LOC: 2 SOUTH 19:03
PROVIDERS: ADMITTING PHYSICIAN Internal Medicine; ATTENDING PHYSICIAN Internal Medicine; CONSULT PHYSICIAN Orthopaedic Surgery; EMERGENCY PHYSICIAN Emergency Medicine; FAMILY PHYSICIAN Family Medicine
PROC: 0PSH04Z Reposition Right Radius with Internal Fixation Device, Open Approach (ICD-10-PCS; 2023-07-03)
DX: M80.031A Age-related osteoporosis with current pathological fracture, right forearm, initial encounter for fracture (principal); E87.1 Hypo-osmolality and hyponatremia; S52.551A Other extraarticular fracture of lower end of right radius, initial encounter for closed fracture; I69.354 Hemiplegia and hemiparesis following cerebral infarction affecting left non-dominant side; F11.20 Opioid dependence, uncomplicated; Z87.891 Personal history of nicotine dependence; M06.9 Rheumatoid arthritis, unspecified; I10 Essential (primary) hypertension; E78.00 Pure hypercholesterolemia, unspecified; G47.00 Insomnia, unspecified; F41.9 Anxiety disorder, unspecified; G89.4 Chronic pain syndrome
CPT/HCPCS: 25605; 73080; 73100; 73110; 76000; 80048; 80053; 83735; 85027; 85610; 85730; 93005; 96374; 97116; 97163; 97164; 97167; 97535; 99285; C1713

== ENCOUNTER → 2023-07-10 11:23 | Outpatient (REF) | payer OTHER, MEDICARE, SELFPAY ==
[2023-07-10 12:06] LABS: % Basophils 1.1 % (0-2); % Eosinophils 9.7 % (0-6); % Immature Granulocytes 0.3 % (0-0.5); % Lymphocytes 21.6 % (20.5-51.1); % Monocytes 9.7 % (1.7-9.3); % Neutrophils 57.6 % (42.2-75.2); Absolute Eosinophils 0.4 10^3/uL (0-0.7); Absolute Lymphocytes 0.8 10^3/uL (1.2-3.4); Absolute Monocytes 0.4 10^3/uL (0.1-0.6); Absolute Neutrophils 2.1 10^3/uL (1.4-6.5); Hematocrit 30.2 % (37.0-47.0); Hemoglobin 10.3 g/dL (12.0-16.0); Mean Corp Hgb Conc. 34.1 g/dL (33.0-37.0); Mean Corpuscular Hgb 31.6 pg (27.0-31.0); Mean Corpuscular Volume 92.6 fL (81.0-99.0); Nucleated Red Blood Cells % 0 %; Platelet Count 241 10^3/uL (130-400); Red Blood Cell Count 3.26 10^6/uL (4.20-5.40); Red Cell Dist. Width 14.1 % (11.5-14.5); White Blood Cell Count 3.7 10^3/uL (4.8-10.8)
[2023-07-10 12:25] LABS: ALT (SGPT) 42 U/L (0-35); AST (SGOT) 40 U/L (14-36); Albumin 3.5 g/dl (3.5-5.0); Alkaline Phosphatase 45 U/L (38-126); Blood Urea Nitrogen 16 mg/dl (7-17); Calcium 9.3 mg/dl (8.4-10.2); Carbon Dioxide 29 mmol/L (22-30); Chloride 98 mmol/L (98-107); Glucose 79 mg/dl (70-99); Potassium 4.4 mmol/L (3.5-5.1); Sodium 133 mmol/L (135-145); Total Bilirubin 0.4 mg/dl (0.2-1.3); Total Protein 5.4 g/dl (6.3-8.2); eGFR > 60.00
== END ==
LOC: OLABP 11:23
PROVIDERS: ATTENDING PHYSICIAN Family Medicine
DX: I69.954 Hemiplegia and hemiparesis following unspecified cerebrovascular disease affecting left non-dominant side (principal); E67.1 Hypercarotenemia; S52.501A Unspecified fracture of the lower end of right radius, initial encounter for closed fracture; M06.9 Rheumatoid arthritis, unspecified; F11.20 Opioid dependence, uncomplicated; M81.0 Age-related osteoporosis without current pathological fracture
CPT/HCPCS: 36415; 80053; 85025

== ENCOUNTER → 2023-08-31 15:02 | Outpatient (REF) | payer MEDICARE, OTHER, SELFPAY ==
[2023-08-31 16:40] LABS: % Basophils 0.8 % (0-2); % Eosinophils 3.4 % (0-6); % Immature Granulocytes 0.3 % (0-0.5); % Lymphocytes 18.7 % (20.5-51.1); % Monocytes 10.8 % (1.7-9.3); Absolute Eosinophils 0.1 10^3/uL (0-0.7); Absolute Lymphocytes 0.7 10^3/uL (1.2-3.4); Absolute Monocytes 0.4 10^3/uL (0.1-0.6); Absolute Neutrophils 2.3 10^3/uL (1.4-6.5); Hematocrit 32.1 % (37.0-47.0); Hemoglobin 11.1 g/dL (12.0-16.0); Mean Corp Hgb Conc. 34.6 g/dL (33.0-37.0); Mean Corpuscular Hgb 31.2 pg (27.0-31.0); Mean Corpuscular Volume 90.2 fL (81.0-99.0); Mean Platelet Volume 10.6 fL (7.4-10.4); Nucleated Red Blood Cells % 0 %; Platelet Count 244 10^3/uL (130-400); Red Blood Cell Count 3.56 10^6/uL (4.20-5.40); Red Cell Dist. Width 13.7 % (11.5-14.5); White Blood Cell Count 3.5 10^3/uL (4.8-10.8)
[2023-08-31 17:00] LABS: Erythrocyte Sed Rate 10 mm/hour (0-20)
[2023-08-31 17:07] LABS: C-Reactive Protein < 5.00 mg/L (0.0-10.00)
[2023-08-31 17:13] LABS: ALT (SGPT) 28 U/L (0-35); AST (SGOT) 33 U/L (14-36); Albumin 4.3 g/dl (3.5-5.0); Blood Urea Nitrogen 11 mg/dl (7-17); Carbon Dioxide 27 mmol/L (22-30); Glucose 85 mg/dl (70-99); Total Bilirubin 0.4 mg/dl (0.2-1.3); Total Protein 6.6 g/dl (6.3-8.2); eGFR > 60.00
[2023-08-31 17:21] LABS: Alkaline Phosphatase 41 U/L (38-126); Calcium 9.7 mg/dl (8.4-10.2); Chloride 96 mmol/L (98-107); Sodium 132 mmol/L (135-145)
== END ==
LOC: REG 15:02
PROVIDERS: ATTENDING PHYSICIAN Internal Medicine Rheumatology; FAMILY PHYSICIAN Family Medicine; REFERRING PHYSICIAN Student in an Organized Health Care Education/Training Program
DX: I10 Essential (primary) hypertension (principal); M06.00 Rheumatoid arthritis without rheumatoid factor, unspecified site
CPT/HCPCS: 36415; 80053; 85025; 85652; 86140

== ENCOUNTER 2023-09-14 06:14 | Outpatient (RCR) | payer MEDICARE, OTHER, SELFPAY | END 2023-09-14 23:59 | disposition home or self-care (01) | LOC: RPT 06:14 | PROVIDERS: ATTENDING PHYSICIAN Physical Medicine & Rehabilitation; FAMILY PHYSICIAN Family Medicine | DX: Z47.89 Encounter for other orthopedic aftercare (principal); Z73.6 Limitation of activities due to disability; M25.531 Pain in right wrist | CPT/HCPCS: 97163; 97166 ==

== ENCOUNTER → 2023-09-18 10:14 | Outpatient (REF) | payer MEDICARE, OTHER, SELFPAY ==
[2023-09-18 11:40] LABS: % Basophils 0.9 % (0-2); % Eosinophils 3.7 % (0-6); % Immature Granulocytes 0.2 % (0-0.5); % Lymphocytes 14.9 % (20.5-51.1); % Monocytes 5.9 % (1.7-9.3); % Neutrophils 74.4 % (42.2-75.2); Absolute Eosinophils 0.2 10^3/uL (0-0.7); Absolute Lymphocytes 0.7 10^3/uL (1.2-3.4); Absolute Monocytes 0.3 10^3/uL (0.1-0.6); Absolute Neutrophils 3.4 10^3/uL (1.4-6.5); Hematocrit 32.2 % (37.0-47.0); Hemoglobin 10.7 g/dL (12.0-16.0); Mean Corp Hgb Conc. 33.2 g/dL (33.0-37.0); Mean Corpuscular Hgb 30.5 pg (27.0-31.0); Mean Corpuscular Volume 91.7 fL (81.0-99.0); Mean Platelet Volume 10.9 fL (7.4-10.4); Nucleated Red Blood Cells % 0 %; Platelet Count 213 10^3/uL (130-400); Red Blood Cell Count 3.51 10^6/uL (4.20-5.40); White Blood Cell Count 4.6 10^3/uL (4.8-10.8)
[2023-09-18 11:46] LABS: ALT (SGPT) 24 U/L (0-35); AST (SGOT) 29 U/L (14-36); Albumin 4.2 g/dl (3.5-5.0); Alkaline Phosphatase 43 U/L (38-126); Blood Urea Nitrogen 11 mg/dl (7-17); Calcium 9.5 mg/dl (8.4-10.2); Carbon Dioxide 27 mmol/L (22-30); Chloride 99 mmol/L (98-107); Glucose 86 mg/dl (70-99); HDL Cholesterol 88 mg/dl; LDL Cholesterol, Calculated 56 mg/dl; Potassium 4.2 mmol/L (3.5-5.1); Sodium 132 mmol/L (135-145); Total Bilirubin 0.5 mg/dl (0.2-1.3); Total Cholesterol 153 mg/dl (50-199); Total Protein 6.2 g/dl (6.3-8.2); Triglyceride 45 mg/dl (10-149); Very Low Density Lipoprotein 9 mg/dl (0-30); eGFR > 60.00
[2023-09-18 11:51] LABS: C-Reactive Protein < 5.00 mg/L (0.0-10.00)
[2023-09-18 13:08] LABS: Erythrocyte Sed Rate 10 mm/hour (0-20)
== END ==
LOC: REG 10:14
PROVIDERS: ATTENDING PHYSICIAN Internal Medicine; FAMILY PHYSICIAN Family Medicine
DX: I10 Essential (primary) hypertension (principal); G89.29 Other chronic pain; E78.2 Mixed hyperlipidemia; I61.9 Nontraumatic intracerebral hemorrhage, unspecified; M19.90 Unspecified osteoarthritis, unspecified site; M54.40 Lumbago with sciatica, unspecified side; M79.641 Pain in right hand; M79.642 Pain in left hand
CPT/HCPCS: 36415; 80053; 80061; 85025; 85652; 86140

== ENCOUNTER → 2023-09-25 10:43 | Outpatient (REF) | payer MEDICARE, OTHER, SELFPAY | LOC: RCS 10:43 | PROVIDERS: ATTENDING PHYSICIAN Student in an Organized Health Care Education/Training Program; FAMILY PHYSICIAN Family Medicine | DX: R07.89 Other chest pain (principal) | CPT/HCPCS: 93306 ==

== ENCOUNTER → 2023-10-22 09:04 | Outpatient (REF) | payer MEDICARE, OTHER, SELFPAY ==
[2023-10-22] MEDS: LEXISCAN 0.4 MG IV (11:21)
== END ==
LOC: RCS 09:04
PROVIDERS: ATTENDING PHYSICIAN Student in an Organized Health Care Education/Training Program; FAMILY PHYSICIAN Family Medicine
DX: R07.89 Other chest pain (principal)
CPT/HCPCS: 78452; 93017; A9500; J2785

== ENCOUNTER 2023-11-29 07:12 | Outpatient (RCR) | payer MEDICARE, OTHER, SELFPAY | END 2023-11-29 23:59 | disposition home or self-care (01) | LOC: RPT 07:12 | PROVIDERS: ATTENDING PHYSICIAN Obstetrics & Gynecology; FAMILY PHYSICIAN Family Medicine | DX: N31.9 Neuromuscular dysfunction of bladder, unspecified (principal); N32.81 Overactive bladder; N39.490 Overflow incontinence; R33.9 Retention of urine, unspecified; Z73.6 Limitation of activities due to disability; R27.8 Other lack of coordination; N39.41 Urge incontinence | CPT/HCPCS: 97163; 97530 ==

== ENCOUNTER → 2023-12-14 15:30 | Outpatient (REF) | payer MEDICARE, OTHER, SELFPAY ==
[2023-12-14 16:31] LABS: % Basophils 0.7 % (0-2); % Eosinophils 3.3 % (0-6); % Lymphocytes 20.6 % (20.5-51.1); % Monocytes 8.8 % (1.7-9.3); % Neutrophils 66.6 % (42.2-75.2); Absolute Eosinophils 0.1 10^3/uL (0-0.7); Absolute Lymphocytes 0.9 10^3/uL (1.2-3.4); Absolute Monocytes 0.4 10^3/uL (0.1-0.6); Absolute Neutrophils 2.8 10^3/uL (1.4-6.5); Hematocrit 31.2 % (37.0-47.0); Hemoglobin 10.2 g/dL (12.0-16.0); Mean Corp Hgb Conc. 32.7 g/dL (33.0-37.0); Mean Corpuscular Hgb 30.1 pg (27.0-31.0); Mean Platelet Volume 11.2 fL (7.4-10.4); Nucleated Red Blood Cells % 0 %; Platelet Count 205 10^3/uL (130-400); Red Blood Cell Count 3.39 10^6/uL (4.20-5.40); Red Cell Dist. Width 14.9 % (11.5-14.5); White Blood Cell Count 4.2 10^3/uL (4.8-10.8)
[2023-12-14 16:35] LABS: Erythrocyte Sed Rate 9 mm/hour (0-20)
[2023-12-14 17:09] LABS: ALT (SGPT) 21 U/L (0-35); AST (SGOT) 27 U/L (14-36); Albumin 4.2 g/dl (3.5-5.0); Alkaline Phosphatase 47 U/L (38-126); Blood Urea Nitrogen 23 mg/dl (7-17); Calcium 9.8 mg/dl (8.4-10.2); Carbon Dioxide 30 mmol/L (22-30); Chloride 97 mmol/L (98-107); Glucose 80 mg/dl (70-99); Potassium 4.4 mmol/L (3.5-5.1); Sodium 137 mmol/L (135-145); Total Bilirubin 0.3 mg/dl (0.2-1.3); Total Protein 6.2 g/dl (6.3-8.2); eGFR > 60.00
[2023-12-14 17:13] LABS: C-Reactive Protein < 5.00 mg/L (0.0-10.00)
== END ==
LOC: REG 15:30
PROVIDERS: ATTENDING PHYSICIAN Internal Medicine Rheumatology; FAMILY PHYSICIAN Family Medicine
DX: M06.00 Rheumatoid arthritis without rheumatoid factor, unspecified site (principal)
CPT/HCPCS: 36415; 80053; 85025; 85652; 86140

== ENCOUNTER 2023-12-25 14:04 | Outpatient (RCR) | payer MEDICARE, OTHER, SELFPAY | END 2023-12-25 23:59 | disposition home or self-care (01) | LOC: RPT 14:04 | PROVIDERS: ATTENDING PHYSICIAN Obstetrics & Gynecology; FAMILY PHYSICIAN Family Medicine | DX: N31.9 Neuromuscular dysfunction of bladder, unspecified (principal); N32.81 Overactive bladder; N39.490 Overflow incontinence; R33.9 Retention of urine, unspecified; Z73.6 Limitation of activities due to disability; R27.8 Other lack of coordination; N39.41 Urge incontinence | CPT/HCPCS: 97014; 97140; 97530 ==

== ENCOUNTER → 2024-01-01 15:21 | Outpatient (REF) | payer MEDICARE, OTHER, SELFPAY ==
[2024-01-01 16:20] LABS: % Basophils 1.2 % (0-2); % Eosinophils 4.4 % (0-6); % Immature Granulocytes 0.3 % (0-0.5); % Lymphocytes 25.7 % (20.5-51.1); % Monocytes 9.6 % (1.7-9.3); % Neutrophils 58.8 % (42.2-75.2); Absolute Eosinophils 0.2 10^3/uL (0-0.7); Absolute Lymphocytes 0.9 10^3/uL (1.2-3.4); Absolute Monocytes 0.3 10^3/uL (0.1-0.6); Hematocrit 30.3 % (37.0-47.0); Hemoglobin 10.1 g/dL (12.0-16.0); Mean Corp Hgb Conc. 33.3 g/dL (33.0-37.0); Mean Corpuscular Hgb 31.4 pg (27.0-31.0); Mean Corpuscular Volume 94.1 fL (81.0-99.0); Mean Platelet Volume 10.6 fL (7.4-10.4); Nucleated Red Blood Cells % 0 %; Platelet Count 234 10^3/uL (130-400); Red Blood Cell Count 3.22 10^6/uL (4.20-5.40); Red Cell Dist. Width 14.4 % (11.5-14.5); White Blood Cell Count 3.4 10^3/uL (4.8-10.8)
[2024-01-01 16:42] LABS: Iron 30 ug/dl (37-170)
[2024-01-01 16:52] LABS: Percent Saturation 8 % (20-50); Total Iron Binding Capacity 368 ug/dl (265-497)
[2024-01-01 17:17] LABS: Ferritin 9.1 ng/ml (11.1-264.0)
[2024-01-01 17:31] LABS: Vitamin B12 468 pg/ml (239-931)
== END ==
LOC: REG 15:21
PROVIDERS: ATTENDING PHYSICIAN Family Medicine
DX: D64.9 Anemia, unspecified (principal); Z79.899 Other long term (current) drug therapy
CPT/HCPCS: 36415; 82607; 82728; 83540; 83550; 85025

== ENCOUNTER 2024-01-23 13:10 | Outpatient (RCR) | payer MEDICARE, OTHER, SELFPAY | END 2024-01-23 23:59 | disposition home or self-care (01) | LOC: RPT 13:10 | PROVIDERS: ATTENDING PHYSICIAN Obstetrics & Gynecology; FAMILY PHYSICIAN Family Medicine | DX: N31.9 Neuromuscular dysfunction of bladder, unspecified (principal); N32.81 Overactive bladder; N39.490 Overflow incontinence; R33.9 Retention of urine, unspecified; Z73.6 Limitation of activities due to disability; R27.8 Other lack of coordination; N39.41 Urge incontinence | CPT/HCPCS: 97112; 97140; 97530 ==

== ENCOUNTER 2024-01-23 21:17 | Emergency (ER) | payer MEDICARE, OTHER, SELFPAY ==
[2024-01-23 21:24] VITALS: BP 114/75
[2024-01-24 00:03] VITALS: BP 137/75
--- NOTE | 2024-01-24 00:31 | ED.GENMED ---
History of Present Illness
General
Chief Complaint: Overdose Unintentional
Source: patient
Time Seen by Provider: 01/24/24 00:18
History of Present Illness
History of Present Illness:
68-year-old female presents to the emergency room concerned that she took too much of her blood pressure medication. Patient states she fell asleep at around 6:00 having recently taken her afternoon dose of blood pressure medicine. She will nap at
about 8 PM or so. The patient thought that she was actually waking up at 8:00 in the morning and proceeded to take an blood pressure medication. When she realized it was actually still the evening she became concerned that she might suffer an
overdose of blood pressure medication. Patient has been asymptomatic. She called poison control who recommended she come to the emergency room for evaluation. Patient ate some salty potato chips hoping it would help keep her blood pressure up.
Past History
Past History
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
ED Past Surgical History: (X 3) and Other (Surgery for deviated septum, bilateral foot surgery, Brain surgerym facial surgery )
Social History
Tobacco: Former smoker
Alcohol: None
Personal:
Living: assisted living
Phy Exam
Physical Exam
Physical Exam:
General: Awake, Alert, Oriented X3. No acute distress.
Vitals: unremarkable
Head: Atraumatic
Eyes: Pupils equal, EOMI
Throat: Airway intact, no exudates
Neck: Trachea midline
Lungs: Clear and equal b/l
Heart: Regular rate, no murmurs
Abd: Soft, Nontender, No pulsatile mass
Neuro: Nonfocal
Skin: Warm, dry, no rash
Extremities: pulses equal b/l, no edema
Course
Vital Signs
Initial and Last Documented VS:
Initial Vital Signs
Temp Pulse Resp BP Pulse Ox
98.8 F 78 16 114/75 98
01/23/24 21:24 01/23/24 21:24 01/23/24 21:24 01/23/24 21:24 01/23/24 21:24
Last Documented Vital Signs
Temp Pulse Resp BP Pulse Ox
97.6 F 67 18 137/75 99
01/24/24 00:03 01/24/24 00:03 01/24/24 00:03 01/24/24 00:03 01/24/24 00:03
MDM/Problems Addressed
Differential Diagnosis Includes:
Labetalol overdose, ARB overdose
MDM/Problems Addressed:
Patient inadvertently took extra dose of her labetalol and losartan. Time of ingestion was about 4 hours prior to my evaluation. Patient's remained asymptomatic. Her blood pressure is actually on the hypertensive side. Patient stable for
discharge home but would recommend she skip her morning dose of blood pressure medications.
Chronic conditions affecting care: HTN
*Pulse Oximetry
Patient hypoxic: no
*Critical Care Note
Total Time (30-74mins, 75-104mins- exclusive of procedures): Not Applicable
ED Attending Note
-
Portions of this chart may have been created with voice recognition software.� Occasional wrong word or��sound alike� substitutions may have occurred due to the inherent limitations of voice recognition software.
Discharge Plan
Departure
Patient Disposition: Home (Routine Discharge)
Date of Disposition: 01/24/24
Time of Disposition: 00:31
Patient with high blood pressure during this ER visit?: Yes
Condition: Good
Discharge Problem:
Accidental overdose of antihypertensive
Instructions: Accidental Overdose (DC)
Prescriptions:
No Action
vilazodone [Viibryd] 40 MG tablet
40 mg PO DAILY
atorvastatin 20 mg tablet
20 mg PO QPM
famotidine 40 mg tablet
40 mg PO BID
alendronate 70 mg tablet
70 mg PO MO
hydrocodone-acetaminophen 10-325 mg tablet
1 tab PO Q6HPRN PRN (Reason: moderate pain)
quetiapine 25 mg Tablet
25 mg PO HSPRN PRN (Reason: sleep)
baclofen 10 mg Tablet
20 mg PO QID
gabapentin 100 mg Capsule
100 mg PO QIDPRN PRN (Reason: nerve pain)
bupropion HCl 300 mg Tablet Extended Release 24 Hr
300 mg PO DAILY
Patient Comments:
patient takes this along with 150 mg
bupropion HCl 150 mg Tablet Extended Release 24 Hr
150 mg PO DAILY
Patient Comments:
patient takes this along with 300 mg
labetalol 200 mg Tablet
200 mg PO TID
losartan 50 mg Tablet
50 mg PO DAILY
methotrexate sodium 2.5 mg Tablet
20 mg PO FR
folic acid 1 mg Tablet
1 mg PO DAILY
sennosides [Senna Laxative] 8.6 mg Tablet
17.2 mg PO HS Qty: 10 0RF
Activity Restrictions/Additional Instructions:
Hold your next dose of your blood pressure medications.
Interventions
Interventions:
*Risk Screen - Suicide Last Done: 01/23/24 21:24
*Nursing Disposition Last Done: 01/24/24 00:46
ED- Cardiac Assessment Last Done: 01/24/24 00:04
ED- Neurological Assessment Last Done: 01/24/24 00:04
ED-Psychological Assessment Last Done: 01/24/24 00:04
ED- Pulmonary Assessment Last Done: 01/24/24 00:04
Discharge Date and Time
Discharge Date/Time: 01/24/24 00:47
Print Language: SURINAMESE
== END 2024-01-24 00:47 | disposition home or self-care (01) ==
LOC: EMR 21:17
PROVIDERS: EMERGENCY PHYSICIAN Emergency Medicine; FAMILY PHYSICIAN Family Medicine
DX: T46.5X1A Poisoning by other antihypertensive drugs, accidental (unintentional), initial encounter (principal); I10 Essential (primary) hypertension; Z87.891 Personal history of nicotine dependence
CPT/HCPCS: 99282

== ENCOUNTER → 2024-01-31 16:36 | Outpatient (REF) | payer MEDICARE, OTHER, SELFPAY | LOC: PAVMRI 16:36 | PROVIDERS: ATTENDING PHYSICIAN Nurse Practitioner Adult Health; FAMILY PHYSICIAN Family Medicine | DX: R51.9 Headache, unspecified (principal); I62.9 Nontraumatic intracranial hemorrhage, unspecified; Z86.73 Personal history of transient ischemic attack (TIA), and cerebral infarction without residual deficits | CPT/HCPCS: 70551 ==

== ENCOUNTER → 2024-02-12 13:05 | Outpatient (REF) | payer MEDICARE, OTHER, SELFPAY | LOC: RAD 13:05 | PROVIDERS: ATTENDING PHYSICIAN Internal Medicine Rheumatology; FAMILY PHYSICIAN Family Medicine | DX: M81.0 Age-related osteoporosis without current pathological fracture (principal) | CPT/HCPCS: 77080 ==

== ENCOUNTER 2024-02-15 14:01 | Outpatient (RCR) | payer MEDICARE, OTHER, SELFPAY | END 2024-02-15 23:59 | disposition home or self-care (01) | LOC: RPT 14:01 | PROVIDERS: ATTENDING PHYSICIAN Obstetrics & Gynecology; FAMILY PHYSICIAN Family Medicine | DX: N31.9 Neuromuscular dysfunction of bladder, unspecified (principal); N32.81 Overactive bladder; N39.490 Overflow incontinence; R33.9 Retention of urine, unspecified; Z73.6 Limitation of activities due to disability; R27.8 Other lack of coordination; N39.41 Urge incontinence | CPT/HCPCS: 97140; 97530 ==

== ENCOUNTER 2024-02-20 06:20 | Day surgery (SDC) | payer MEDICARE, OTHER, SELFPAY | END 2024-02-20 11:41 | disposition home or self-care (01) | LOC: GI 06:20 | PROVIDERS: ATTENDING PHYSICIAN Internal Medicine Gastroenterology | DX: D50.0 Iron deficiency anemia secondary to blood loss (chronic) (principal); R12 Heartburn; K31.7 Polyp of stomach and duodenum | CPT/HCPCS: 43239; 88305 ==

== ENCOUNTER 2024-03-27 10:31 | Outpatient (RCR) | payer MEDICARE, OTHER, SELFPAY | END 2024-03-27 23:59 | disposition home or self-care (01) | LOC: RPT 10:31 | PROVIDERS: ATTENDING PHYSICIAN Obstetrics & Gynecology; FAMILY PHYSICIAN Family Medicine | DX: N31.9 Neuromuscular dysfunction of bladder, unspecified (principal); N32.81 Overactive bladder; N39.490 Overflow incontinence; R33.9 Retention of urine, unspecified; R27.8 Other lack of coordination; Z73.6 Limitation of activities due to disability; N39.41 Urge incontinence | CPT/HCPCS: 97014; 97140; 97530 ==

== ENCOUNTER 2024-04-04 17:24 | Emergency (ER) | payer MEDICARE, OTHER, SELFPAY ==
[2024-04-04 17:27] VITALS: BP 154/96
--- NOTE | 2024-04-04 17:30 | ED.GENMED ---
ED Provider Triage
<Jeff Keenan PA-C - Last Filed: 04/04/24 17:32>
-
Patient seen by provider in Triage?: Seen in Triage
68 yo female presents for evaluation of h/a and increased L sided spasticity beginning today. Prior CVA w/ L hemiparesis. Feels fatigued and lightheaded currently. No fevers or chills. Concerned her BP was high. Compliant w/ BP meds. No vision
changes.
Clinically well, baseline L hemiparesis. AO x 3
Send for CTH, check labs and EKG
<Tong Medrano DO - Last Filed: 04/04/24 22:32>
-
68 yo female presents for evaluation of h/a and increased L sided spasticity beginning today. Prior CVA w/ L hemiparesis. Feels fatigued and lightheaded currently. No fevers or chills. Concerned her BP was high. Compliant w/ BP meds. No vision
changes.
Clinically well, baseline L hemiparesis. AO x 3
Send for CTH, check labs and EKG
History of Present Illness
<Jeff Keenan PA-C - Last Filed: 04/04/24 17:32>
General
Chief Complaint: Blood Pressure Problem
Time Seen by Provider: 04/04/24 22:13
<Tong Medrano DO - Last Filed: 04/04/24 22:32>
History of Present Illness
History of Present Illness:
TIME OF INITIAL ENCOUNTER: 10:15 PM
HPI: The patient presents because she was concerned of a overall 'warm' feeling that started around 9 AM today and she had some increased L sided spasticity that worsened around 3 PM. She has a history of prior CVA w/ L hemiparesis related to
hemorrhage in 2021. She had blood pressure readings of 150/100 at home which concerned her so she came in here for further evaluation. Currently she has been drinking water throughout her stay in the ER before my evaluation and now feels markedly
improved. Although she said that she felt warm earlier, she denies having fevers or chills
EXAM:
GENERAL: Well appearing in no distress
HEENT: Slightly dry oral mucosa
CARDIOVASCULAR: No murmurs, normal heart rate, regular rhythm, No chest wall tenderness
PULMONARY: No respiratory distress, breath sounds are clear and equal
ABDOMEN: Soft with no peritoneal signs, no tenderness
NEUROLOGIC: Mild to moderate left-sided hemiparesis noted however she is antigravity to the left upper extremity
PSYCHIATRIC: Appropriate mental status, normal insight and judgement
EXTREMITIES: Nontender, no edema, moves all extremities equally
SKIN: No rash, no lesions
NUMBER AND COMPLEXITY OF PROBLEMS ADDRESSED AT THE ENCOUNTER
� Chronic conditions affecting care: Has had hemorrhagic CVA in the past, anemia
� Acute Exacerbation and/or Progression of Chronic Illness: This is an acute problem
� Differential Diagnosis includes: Electrolyte abnormality, viral syndrome, labile hypertension
AMOUNT AND/OR COMPLEXITY OF DATA TO BE REVIEWED AND ANALYZED
� I performed an independent evaluation of and my interpretation is:
EKG: Sinus 74, left axis deviation, nonspecific ST abnormality
CT: CT brain was obtained that shows no acute hemorrhage or hydrocephalus, moderate encephalomalacia at the right thalamus is noted related to prior and resolved intraparenchymal hemorrhage
X-rays:
Laboratory Studies: White count 4.6, hemoglobin 1.5, sodium 127
Other:
� Review of other/old records: I reviewed records, sodium 3 months ago was normal at 137. In January 2022, patient was seen as a stroke alert after she collapsed and had left-sided hemiparesis and was found to have a bleed at
that time.
� Clinical information was obtained by an independent historian: I spoke to the at bedside
� Prescriptions/Medications Considered but not given:
� Further testing considered but not performed:
RISK OF COMPLICATIONS AND/OR MORBIDITY OR MORTALITY OF PATIENT MANAGEMENT
� Social determinants of health affecting care: Lives at home
� Discussion with other providers:
� Escalation of care including admission/observation vs risk of discharge considered: Overall, the patient spontaneously feels improved. We did talk about the mild hyponatremia. She states she was recently placed on diuretic.
Will have her hold the diuretic for the next few days and have her have primary care doctor recheck chemistries early next week. She did drink water throughout her stay in the [facility] apartment and she does feel improved
ANY OTHER UPDATES:
Past History
<Jeff Keenan PA-C - Last Filed: 04/04/24 17:32>
Past History
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
ED Past Surgical History: (X 3) and Other (Surgery for deviated septum, bilateral foot surgery, Brain surgerym facial surgery )
Social History
Tobacco: Former smoker
Alcohol: None
Personal:
Living: assisted living
Phy Exam
<Tong Medrano DO - Last Filed: 04/04/24 22:32>
Physical Exam
Physical Exam:
See HPI
Course
<Jeff Keenan PA-C - Last Filed: 04/04/24 17:32>
Orders/Labs/Results
Orders:
Orders
04/04/24 17:29
CT Head W/o Iv Contrast Urgent
Comment:
Reason For Exam: h/a, high BP
04/04/24 17:30
Electrocardiogram (*1) Urgent
Reason for Study: QTc Monitoring
EKG- Treatment ONCE
04/04/24 17:42
Complete Blood Count/With Diff Urgent
Comprehensive Metabolic Panel Urgent
Abnormal Lab Results
04/04/24
17:42
WBC 4.6 L 10^3/uL
(4.8-10.8)
RBC 3.60 L 10^6/uL
(4.20-5.40)
Hgb 11.5 L g/dL
(12.0-16.0)
Hct 32.9 L %
(37.0-47.0)
MCH 31.9 H pg
(27.0-31.0)
Absolute Lymphs (auto) 0.6 L 10^3/uL
(1.2-3.4)
Neutrophils % 77.9 H %
(42.2-75.2)
Lymphocytes % 12.9 L %
(20.5-51.1)
Sodium 127 L mmol/L
(135-145)
Chloride 92 L mmol/L
(98-107)
BUN 18 H mg/dl
(7-17)
04/04/24 17:42
04/04/24 17:42
Vital Signs
Initial and Last Documented VS:
Initial Vital Signs
Temp Pulse Resp BP Pulse Ox
36.8 C 76 20 154/96 98
04/04/24 17:27 04/04/24 17:27 04/04/24 17:27 04/04/24 17:27 04/04/24 17:27
Last Documented Vital Signs
Temp Pulse Resp BP Pulse Ox
36.8 C 73 14 142/82 96
04/04/24 17:27 04/04/24 22:00 04/04/24 22:00 04/04/24 22:00 04/04/24 22:00
Mohinilt;Tong Medrano DO - Last Filed: 04/04/24 22:32>
Orders/Labs/Results
Orders:
Orders
04/04/24 17:29
CT Head W/o Iv Contrast Urgent
Comment:
Reason For Exam: h/a, high BP
04/04/24 17:30
Electrocardiogram (*1) Urgent
Reason for Study: QTc Monitoring
EKG- Treatment ONCE
04/04/24 17:42
Complete Blood Count/With Diff Urgent
Comprehensive Metabolic Panel Urgent
Abnormal Lab Results
04/04/24
17:42
WBC 4.6 L 10^3/uL
(4.8-10.8)
RBC 3.60 L 10^6/uL
(4.20-5.40)
Hgb 11.5 L g/dL
(12.0-16.0)
Hct 32.9 L %
(37.0-47.0)
MCH 31.9 H pg
(27.0-31.0)
Absolute Lymphs (auto) 0.6 L 10^3/uL
(1.2-3.4)
Neutrophils % 77.9 H %
(42.2-75.2)
Lymphocytes % 12.9 L %
(20.5-51.1)
Sodium 127 L mmol/L
(135-145)
Chloride 92 L mmol/L
(98-107)
BUN 18 H mg/dl
(7-17)
04/04/24 17:42
04/04/24 17:42
Vital Signs
Initial and Last Documented VS:
Initial Vital Signs
Temp Pulse Resp BP Pulse Ox
36.8 C 76 20 154/96 98
04/04/24 17:27 04/04/24 17:27 04/04/24 17:27 04/04/24 17:27 04/04/24 17:27
Last Documented Vital Signs
Temp Pulse Resp BP Pulse Ox
36.8 C 73 14 142/82 96
04/04/24 17:27 04/04/24 22:00 04/04/24 22:00 04/04/24 22:00 04/04/24 22:00
<Tong Medrano DO - Last Filed: 04/04/24 22:32>
*Critical Care Note
Total Time (30-74mins, 75-104mins- exclusive of procedures): Not Applicable
ED Attending Note
<Jeff Keenan PA-C - Last Filed: 04/04/24 17:32>
-
Portions of this chart may have been created with voice recognition software.� Occasional wrong word or��sound alike� substitutions may have occurred due to the inherent limitations of voice recognition software.
Discharge Plan
Departure
Prescriptions:
No Action
vilazodone [Viibryd] 40 MG tablet
40 mg PO DAILY
atorvastatin 20 mg tablet
20 mg PO QPM
famotidine 40 mg tablet
40 mg PO BID
alendronate 70 mg tablet
70 mg PO MO
hydrocodone-acetaminophen 10-325 mg tablet
1 tab PO Q6HPRN PRN (Reason: moderate pain)
quetiapine 25 mg Tablet
25 mg PO HSPRN PRN (Reason: sleep)
baclofen 10 mg Tablet
20 mg PO QID
gabapentin 100 mg Capsule
100 mg PO QIDPRN PRN (Reason: nerve pain)
bupropion HCl 300 mg Tablet Extended Release 24 Hr
300 mg PO DAILY
Patient Comments:
patient takes this along with 150 mg
bupropion HCl 150 mg Tablet Extended Release 24 Hr
150 mg PO DAILY
Patient Comments:
patient takes this along with 300 mg
labetalol 200 mg Tablet
200 mg PO TID
losartan 50 mg Tablet
50 mg PO DAILY
methotrexate sodium 2.5 mg Tablet
20 mg PO FR
folic acid 1 mg Tablet
1 mg PO DAILY
sennosides [Senna Laxative] 8.6 mg Tablet
17.2 mg PO HS Qty: 10 0RF
Interventions
Interventions:
*Risk Screen - Suicide Last Done: 04/04/24 21:54
*General Assessment Last Done: 04/04/24 17:27
*Neglect/Abuse Screening Last Done: 04/04/24 21:54
*ED COVID-19 Vaccine History Last Done: 04/04/24 21:52
ED- Cardiac Assessment Last Done: 04/04/24 21:52
ED- Neurological Assessment Last Done: 04/04/24 21:52
ED- Pulmonary Assessment Last Done: 04/04/24 21:52
Discharge Date and Time
Print Language: GREENLANDIC
[2024-04-04 17:54] LABS: % Basophils 0.6 % (0-2); % Eosinophils 1.7 % (0-6); % Immature Granulocytes 0.2 % (0-0.5); % Lymphocytes 12.9 % (20.5-51.1); % Monocytes 6.7 % (1.7-9.3); % Neutrophils 77.9 % (42.2-75.2); Absolute Eosinophils 0.1 10^3/uL (0-0.7); Absolute Lymphocytes 0.6 10^3/uL (1.2-3.4); Absolute Monocytes 0.3 10^3/uL (0.1-0.6); Absolute Neutrophils 3.6 10^3/uL (1.4-6.5); Hematocrit 32.9 % (37.0-47.0); Hemoglobin 11.5 g/dL (12.0-16.0); Mean Corpuscular Hgb 31.9 pg (27.0-31.0); Mean Corpuscular Volume 91.4 fL (81.0-99.0); Mean Platelet Volume 10.2 fL (7.4-10.4); Nucleated Red Blood Cells % 0 %; Platelet Count 166 10^3/uL (130-400); Red Cell Dist. Width 14.2 % (11.5-14.5); White Blood Cell Count 4.6 10^3/uL (4.8-10.8)
[2024-04-04 18:21] LABS: ALT (SGPT) 27 U/L (0-35); AST (SGOT) 29 U/L (14-36); Albumin 4.5 g/dl (3.5-5.0); Alkaline Phosphatase 47 U/L (38-126); Blood Urea Nitrogen 18 mg/dl (7-17); Carbon Dioxide 26 mmol/L (22-30); Chloride 92 mmol/L (98-107); Glucose 87 mg/dl (70-99); Potassium 3.9 mmol/L (3.5-5.1); Sodium 127 mmol/L (135-145); Total Bilirubin 0.5 mg/dl (0.2-1.3); Total Protein 6.3 g/dl (6.3-8.2); eGFR > 60.00
[2024-04-04 21:49] VITALS: BP 138/82
[2024-04-04 21:53] VITALS: BMI 20.5
[2024-04-04 22:00] VITALS: BP 142/82
== END 2024-04-04 22:53 | disposition home or self-care (01) ==
LOC: EMR 17:24
PROVIDERS: Physician Assistant; EMERGENCY PHYSICIAN Emergency Medicine; FAMILY PHYSICIAN Family Medicine
DX: I10 Essential (primary) hypertension (principal); Z87.891 Personal history of nicotine dependence; I69.354 Hemiplegia and hemiparesis following cerebral infarction affecting left non-dominant side
CPT/HCPCS: 99285; 70450; 80053; 85025; 93005

== ENCOUNTER → 2024-04-10 14:15 | Outpatient (REF) | payer MEDICARE, OTHER, SELFPAY ==
[2024-04-10 15:23] LABS: % Basophils 0.8 % (0-2); % Immature Granulocytes 0.3 % (0-0.5); % Lymphocytes 20.4 % (20.5-51.1); % Neutrophils 68.5 % (42.2-75.2); Absolute Eosinophils 0.1 10^3/uL (0-0.7); Absolute Lymphocytes 0.8 10^3/uL (1.2-3.4); Absolute Monocytes 0.3 10^3/uL (0.1-0.6); Absolute Neutrophils 2.7 10^3/uL (1.4-6.5); Hematocrit 32.8 % (37.0-47.0); Hemoglobin 11.4 g/dL (12.0-16.0); Mean Corp Hgb Conc. 34.8 g/dL (33.0-37.0); Mean Corpuscular Hgb 32.1 pg (27.0-31.0); Mean Corpuscular Volume 92.4 fL (81.0-99.0); Mean Platelet Volume 10.5 fL (7.4-10.4); Nucleated Red Blood Cells % 0 %; Platelet Count 197 10^3/uL (130-400); Red Blood Cell Count 3.55 10^6/uL (4.20-5.40); Red Cell Dist. Width 14.2 % (11.5-14.5)
[2024-04-10 16:34] LABS: Blood Urea Nitrogen 17 mg/dl (7-17); Calcium 9.4 mg/dl (8.4-10.2); Carbon Dioxide 28 mmol/L (22-30); Chloride 96 mmol/L (98-107); Glucose 86 mg/dl (70-99); Potassium 4.5 mmol/L (3.5-5.1); Sodium 130 mmol/L (135-145); eGFR > 60.00
== END ==
LOC: REG 14:15
PROVIDERS: ATTENDING PHYSICIAN Internal Medicine Gastroenterology; FAMILY PHYSICIAN Family Medicine
DX: T18.9XXA Foreign body of alimentary tract, part unspecified, initial encounter (principal); I10 Essential (primary) hypertension; D50.0 Iron deficiency anemia secondary to blood loss (chronic); R79.9 Abnormal finding of blood chemistry, unspecified
CPT/HCPCS: 36415; 74018; 80048; 85025

== ENCOUNTER 2024-04-16 12:14 | Outpatient (RCR) | payer MEDICARE, OTHER, SELFPAY | END 2024-04-17 07:35 | disposition home or self-care (01) | LOC: RPT 12:14 | PROVIDERS: ATTENDING PHYSICIAN Obstetrics & Gynecology; FAMILY PHYSICIAN Family Medicine | DX: N31.9 Neuromuscular dysfunction of bladder, unspecified (principal); N32.81 Overactive bladder; N39.490 Overflow incontinence; R33.9 Retention of urine, unspecified; R27.8 Other lack of coordination; Z73.6 Limitation of activities due to disability; N39.41 Urge incontinence | CPT/HCPCS: 97014; 97530 ==

== ENCOUNTER → 2024-05-30 10:01 | Outpatient (REF) | payer MEDICARE, OTHER, SELFPAY ==
[2024-05-30 12:29] LABS: % Basophils 0.9 % (0-2); % Eosinophils 2.1 % (0-6); % Immature Granulocytes 0.3 % (0-0.5); % Lymphocytes 23.8 % (20.5-51.1); % Monocytes 10.6 % (1.7-9.3); % Neutrophils 62.3 % (42.2-75.2); Absolute Eosinophils 0.1 10^3/uL (0-0.7); Absolute Lymphocytes 0.8 10^3/uL (1.2-3.4); Absolute Monocytes 0.4 10^3/uL (0.1-0.6); Absolute Neutrophils 2.1 10^3/uL (1.4-6.5); Hematocrit 38.6 % (37.0-47.0); Hemoglobin 12.7 g/dL (12.0-16.0); Mean Corp Hgb Conc. 32.9 g/dL (33.0-37.0); Mean Corpuscular Hgb 32.2 pg (27.0-31.0); Mean Platelet Volume 10.7 fL (7.4-10.4); Nucleated Red Blood Cells % 0 %; Platelet Count 219 10^3/uL (130-400); Red Blood Cell Count 3.94 10^6/uL (4.20-5.40); Red Cell Dist. Width 14.1 % (11.5-14.5); White Blood Cell Count 3.4 10^3/uL (4.8-10.8)
[2024-05-30 13:27] LABS: ALT (SGPT) 22 U/L (0-35); AST (SGOT) 25 U/L (14-36); Albumin 4.5 g/dl (3.5-5.0); Alkaline Phosphatase 44 U/L (38-126); Blood Urea Nitrogen 12 mg/dl (7-17); Calcium 9.7 mg/dl (8.4-10.2); Carbon Dioxide 29 mmol/L (22-30); Chloride 96 mmol/L (98-107); Glucose 64 mg/dl (70-99); Potassium 4.2 mmol/L (3.5-5.1); Sodium 134 mmol/L (135-145); Total Bilirubin 0.8 mg/dl (0.2-1.3); Total Protein 6.3 g/dl (6.3-8.2); eGFR > 60.00
[2024-05-30 13:30] LABS: C-Reactive Protein < 5.00 mg/L (0.0-10.00)
[2024-05-30 14:00] LABS: TSH 0.45 uIU/ml (0.47-4.68)
[2024-05-30 14:05] LABS: Erythrocyte Sed Rate 6 mm/hour (0-20)
== END ==
LOC: REG 10:01
PROVIDERS: ATTENDING PHYSICIAN Nurse Practitioner Adult Health; FAMILY PHYSICIAN Family Medicine; OTHER PHYSICIAN Internal Medicine Rheumatology; REFERRING PHYSICIAN Student in an Organized Health Care Education/Training Program
DX: G45.9 Transient cerebral ischemic attack, unspecified (principal); R51.9 Headache, unspecified; Z86.73 Personal history of transient ischemic attack (TIA), and cerebral infarction without residual deficits; E87.1 Hypo-osmolality and hyponatremia; R05.3 Chronic cough; I10 Essential (primary) hypertension; E78.2 Mixed hyperlipidemia; E78.5 Hyperlipidemia, unspecified
CPT/HCPCS: 36415; 70544; 71046; 80053; 84443; 85025; 85652; 86140

== ENCOUNTER 2024-06-05 13:49 | Emergency (ER) | payer MEDICARE, OTHER, SELFPAY ==
[2024-06-05 13:58] VITALS: BP 145/87
--- NOTE | 2024-06-05 14:45 | ED.GENMED ---
History of Present Illness
General
Chief Complaint: Fall
Source: patient
Exam Limitations: none
Time Seen by Provider: 06/05/24 14:45
Nursing documentation reviewed up to this point in time: agreed with
History of Present Illness
History of Present Illness:
Patient presents to ED secondary to the loss of balance and falling backwards, hitting her head against wooden floor. Denies any other injury. Patient reports mild headache. Denies neck pain. Denies blurred vision. Denies dizziness. Denies
nausea or vomiting. Patient does have history of CVA with residual left-sided deficit, which may have contributed to her fall today.
Past History
Past History
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
ED Past Surgical History: (X 3) and Other (Surgery for deviated septum, bilateral foot surgery, Brain surgerym facial surgery )
Social History
Tobacco: Former smoker
Alcohol: None
Personal:
Living: assisted living
Review of Systems
Review of Systems
Allergies reviewed?: Yes
All Other Systems: ROS reviewed and negative except as documented in HPI and ROS
Constitutional: Reports no symptoms
Respiratory: Reports no symptoms
Cardiac: Reports no symptoms
ABD/GI: Reports no symptoms
Musculoskeletal: Reports no symptoms
Skin: Reports no symptoms
Neurological: Reports headache
Phy Exam
Physical Exam
Physical Exam:
Physical Exam
General: no apparent distress, not acutely ill. afebrile
Head: mild swelling/tenderness noted over right posterior scalp without bleeding
Neck: supple. normal range of motion
Heart: s1/s2 regular rate and rhythm, no murmur.
Lungs: no acute respiratory distress. clear bilaterally. chest wall nontender to palpation
Abdomen: normal bowel sounds. not tender.
Neuro: alert and oriented x 3. no focal neurological deficits
Skin: no rash
Psychiatric: well kept. interactive and cooperative
Extremities: no edema. no calf tenderness.
Course
Orders/Labs/Results
Orders:
Orders
06/05/24 14:[address] [CT Head W/o Iv Contrast] Urgent
Comment:
Reason For Exam: head injury/headache.
Vital Signs
Initial and Last Documented VS:
Initial Vital Signs
Temp Pulse Resp BP Pulse Ox
97.6 F 72 17 145/87 99
06/05/24 13:58 06/05/24 13:58 06/05/24 13:58 06/05/24 13:58 06/05/24 13:58
Last Documented Vital Signs
Temp Pulse Resp BP Pulse Ox
97.6 F 72 17 145/87 99
06/05/24 13:58 06/05/24 13:58 06/05/24 13:58 06/05/24 13:58 06/05/24 13:58
MDM/Problems Addressed
MDM/Problems Addressed:
CT report reviewed and discussed with patient. Patient otherwise is afebrile, hemodynamically stable, and neurologically intact, at time of discharge. Patient will follow-up with her PCP with any further concerns.
*Critical Care Note
Total Time (30-74mins, 75-104mins- exclusive of procedures): Not Applicable
ED Attending Note
-
Portions of this chart may have been created with voice recognition software.� Occasional wrong word or��sound alike� substitutions may have occurred due to the inherent limitations of voice recognition software.
Discharge Plan
Departure
Patient Disposition: Home (Routine Discharge)
Date of Disposition: 06/05/24
Time of Disposition: 14:45
Patient with high blood pressure during this ER visit?: Yes
Condition: Good
Discharge Problem:
Head injury
Instructions: Head Injury in Adults (DC)
Prescriptions:
No Action
vilazodone [Viibryd] 40 MG tablet
40 mg PO DAILY
atorvastatin 20 mg tablet
20 mg PO QPM
famotidine 40 mg tablet
40 mg PO BID
alendronate 70 mg tablet
70 mg PO MO
hydrocodone-acetaminophen 10-325 mg tablet
1 tab PO Q6HPRN PRN (Reason: moderate pain)
quetiapine 25 mg Tablet
25 mg PO HSPRN PRN (Reason: sleep)
baclofen 10 mg Tablet
20 mg PO QID
gabapentin 100 mg Capsule
100 mg PO QIDPRN PRN (Reason: nerve pain)
bupropion HCl 300 mg Tablet Extended Release 24 Hr
300 mg PO DAILY
Patient Comments:
patient takes this along with 150 mg
bupropion HCl 150 mg Tablet Extended Release 24 Hr
150 mg PO DAILY
Patient Comments:
patient takes this along with 300 mg
labetalol 200 mg Tablet
200 mg PO TID
losartan 50 mg Tablet
50 mg PO DAILY
methotrexate sodium 2.5 mg Tablet
20 mg PO FR
folic acid 1 mg Tablet
1 mg PO DAILY
sennosides [Senna Laxative] 8.6 mg Tablet
17.2 mg PO HS Qty: 10 0RF
Activity Restrictions/Additional Instructions:
As discussed, please follow up with your primary care physician with any further concerns.
Interventions
Interventions:
*Risk Screen - Suicide Last Done: 06/05/24 13:58
*Nursing Disposition Last Done: 06/05/24 14:55
Discharge Date and Time
Discharge Date/Time: 06/05/24 14:56
Print Language: [place]
== END 2024-06-05 14:56 | disposition home or self-care (01) ==
LOC: EMR 13:49
PROVIDERS: EMERGENCY PHYSICIAN Emergency Medicine; FAMILY PHYSICIAN Family Medicine
DX: S09.90XA Unspecified injury of head, initial encounter (principal); W19.XXXA Unspecified fall, initial encounter; I10 Essential (primary) hypertension; E78.00 Pure hypercholesterolemia, unspecified; F32.A Depression, unspecified; I69.354 Hemiplegia and hemiparesis following cerebral infarction affecting left non-dominant side
CPT/HCPCS: 99284; 70450

== ENCOUNTER → 2024-06-26 11:01 | Outpatient (REF) | payer MEDICARE, OTHER, SELFPAY | LOC: WDC 11:01 | PROVIDERS: ATTENDING PHYSICIAN Obstetrics & Gynecology; FAMILY PHYSICIAN Family Medicine | DX: Z12.31 Encounter for screening mammogram for malignant neoplasm of breast (principal) | CPT/HCPCS: 77063; 77067 ==

== ENCOUNTER → 2024-07-10 10:55 | Outpatient (REF) | payer MEDICARE, OTHER, SELFPAY | LOC: RAD 10:55 | PROVIDERS: ATTENDING PHYSICIAN Obstetrics & Gynecology | DX: N93.9 Abnormal uterine and vaginal bleeding, unspecified (principal) | CPT/HCPCS: 76830; 76856 ==

== ENCOUNTER → 2024-07-25 12:30 | Outpatient (REF) | payer MEDICARE, OTHER, SELFPAY | LOC: CLAB 12:30 | PROVIDERS: ATTENDING PHYSICIAN Obstetrics & Gynecology | DX: N76.0 Acute vaginitis (principal) | CPT/HCPCS: 81513; 87481; 87661 ==

== ENCOUNTER → 2024-08-18 11:13 | Outpatient (REF) | payer MEDICARE, OTHER, SELFPAY ==
[2024-08-18 12:16] LABS: % Basophils 1.1 % (0-2); % Lymphocytes 24.5 % (20.5-51.1); % Monocytes 8.5 % (1.7-9.3); % Neutrophils 59.9 % (42.2-75.2); Absolute Eosinophils 0.2 10^3/uL (0-0.7); Absolute Lymphocytes 0.7 10^3/uL (1.2-3.4); Absolute Monocytes 0.2 10^3/uL (0.1-0.6); Absolute Neutrophils 1.7 10^3/uL (1.4-6.5); Hematocrit 37.7 % (37.0-47.0); Hemoglobin 12.6 g/dL (12.0-16.0); Mean Corp Hgb Conc. 33.4 g/dL (33.0-37.0); Mean Corpuscular Hgb 32.6 pg (27.0-31.0); Mean Corpuscular Volume 97.4 fL (81.0-99.0); Mean Platelet Volume 10.7 fL (7.4-10.4); Nucleated Red Blood Cells % 0 %; Platelet Count 201 10^3/uL (130-400); Red Blood Cell Count 3.87 10^6/uL (4.20-5.40); Red Cell Dist. Width 13.2 % (11.5-14.5); White Blood Cell Count 2.8 10^3/uL (4.8-10.8)
[2024-08-18 12:18] LABS: Urine Albumin Negative (Neg - Trace); Urine Bilirubin Negative (Negative); Urine Character Clear (Clear); Urine Color Yellow; Urine Glucose Negative (Negative); Urine Ketone Negative (Negative); Urine Leukocyte Negative (Negative); Urine Nitrite Negative (Negative); Urine Occult Blood Negative (Negative); Urine Urobilinogen Negative (Neg - 1+)
[2024-08-18 12:54] LABS: Erythrocyte Sed Rate 10 mm/hour (0-20)
[2024-08-18 13:14] LABS: C-Reactive Protein < 5.00 mg/L (0.0-10.00)
[2024-08-18 13:23] LABS: Protein/creatinine Ratio 0.2; Urine Protein 12 mg/dl
[2024-08-18 13:45] LABS: TSH 1.08 uIU/ml (0.47-4.68)
[2024-08-18 14:28] LABS: Urine Sodium 93 mmol/L (30-90)
[2024-08-18 14:32] LABS: ALT (SGPT) 23 U/L (0-35); AST (SGOT) 23 U/L (14-36); Albumin 4.2 g/dl (3.5-5.0); Alkaline Phosphatase 34 U/L (38-126); Blood Urea Nitrogen 12 mg/dl (7-17); Calcium 9.4 mg/dl (8.4-10.2); Carbon Dioxide 27 mmol/L (22-30); Chloride 103 mmol/L (98-107); Glucose 83 mg/dl (70-99); HDL Cholesterol 76 mg/dl; LDL Cholesterol, Calculated 68 mg/dl; Potassium 4.4 mmol/L (3.5-5.1); Sodium 137 mmol/L (135-145); Total Bilirubin 0.7 mg/dl (0.2-1.3); Total Cholesterol 152 mg/dl (50-199); Total Protein 6.1 g/dl (6.3-8.2); Triglyceride 42 mg/dl (10-149); Uric Acid 2.8 mg/dl (2.5-6.2); Very Low Density Lipoprotein 8 mg/dl (0-30); eGFR > 60.00
== END ==
LOC: REG 11:13
PROVIDERS: ATTENDING PHYSICIAN Internal Medicine Nephrology; FAMILY PHYSICIAN Family Medicine; OTHER PHYSICIAN Family Medicine; OTHER PHYSICIAN Internal Medicine Rheumatology; REFERRING PHYSICIAN Nurse Practitioner Adult Health
DX: M06.00 Rheumatoid arthritis without rheumatoid factor, unspecified site (principal); E87.1 Hypo-osmolality and hyponatremia; E78.2 Mixed hyperlipidemia; I10 Essential (primary) hypertension; Z86.73 Personal history of transient ischemic attack (TIA), and cerebral infarction without residual deficits; G45.9 Transient cerebral ischemic attack, unspecified; R51.9 Headache, unspecified
CPT/HCPCS: 36415; 80053; 80061; 81003; 82570; 84156; 84300; 84443; 84550; 85025; 85652; 86140

== ENCOUNTER → 2024-08-18 12:47 | Outpatient (REF) | payer MEDICARE, OTHER, SELFPAY | LOC: DHSLP 12:47 | PROVIDERS: ATTENDING PHYSICIAN Internal Medicine Critical Care Medicine; FAMILY PHYSICIAN Family Medicine | DX: G47.30 Sleep apnea, unspecified (principal); R06.83 Snoring | CPT/HCPCS: 95800 ==

== ENCOUNTER → 2024-12-04 16:51 | Outpatient (REF) | payer MEDICARE, OTHER, SELFPAY ==
[2024-12-04 17:50] LABS: Hematocrit 39.1 % (37.0-47.0); Hemoglobin 12.7 g/dL (12.0-16.0); Mean Corp Hgb Conc. 32.5 g/dL (33.0-37.0); Mean Corpuscular Volume 98.5 fL (81.0-99.0); Nucleated Red Blood Cells % 0 %; Platelet Count 205 10^3/uL (130-400); Red Cell Dist. Width 12.9 % (11.5-14.5)
[2024-12-04 17:54] LABS: Blood Urea Nitrogen 15 mg/dl (7-17); Calcium 9.5 mg/dl (8.4-10.2); Carbon Dioxide 31 mmol/L (22-30); Chloride 102 mmol/L (98-107); Glucose 85 mg/dl (70-99); Potassium 4.0 mmol/L (3.5-5.1); Sodium 137 mmol/L (135-145); eGFR > 60.00
== END ==
LOC: CLAB 16:51
PROVIDERS: ATTENDING PHYSICIAN Family Medicine
DX: Z01.818 Encounter for other preprocedural examination (principal)
CPT/HCPCS: 36415; 80048; 85025

== ENCOUNTER → 2024-12-16 13:54 | Outpatient (REF) | payer MEDICARE, OTHER, SELFPAY | LOC: MRI 3T 13:54 | PROVIDERS: ATTENDING PHYSICIAN Student in an Organized Health Care Education/Training Program; FAMILY PHYSICIAN Family Medicine | DX: M25.561 Pain in right knee (principal) | CPT/HCPCS: 73721 ==

== ENCOUNTER 2024-12-17 10:32 | Outpatient (RCR) | payer MEDICARE, OTHER, SELFPAY | END 2024-12-17 23:59 | disposition home or self-care (01) | LOC: RPT 10:32 | PROVIDERS: ATTENDING PHYSICIAN Physician Assistant Surgical; FAMILY PHYSICIAN Family Medicine | DX: I69.198 Other sequelae of nontraumatic intracerebral hemorrhage (principal); Z73.6 Limitation of activities due to disability; R26.2 Difficulty in walking, not elsewhere classified; R26.89 Other abnormalities of gait and mobility; M62.81 Muscle weakness (generalized) | CPT/HCPCS: 97163; 97530 ==

== ENCOUNTER → 2025-01-09 12:01 | Outpatient (REF) | payer MEDICARE, OTHER, SELFPAY ==
[2025-01-09 12:50] LABS: Iron 54 ug/dl (37-170)
[2025-01-09 13:00] LABS: Total Iron Binding Capacity 323 ug/dl (265-497)
[2025-01-09 13:38] LABS: Ferritin 51.3 ng/ml (11.1-264.0)
== END ==
LOC: CLAB 12:01
PROVIDERS: ATTENDING PHYSICIAN Family Medicine
DX: E61.1 Iron deficiency (principal)
CPT/HCPCS: 82728; 83540; 83550

== ENCOUNTER 2025-01-27 08:30 | Outpatient (RCR) | payer MEDICARE, OTHER, SELFPAY | END 2025-01-27 23:59 | disposition home or self-care (01) | LOC: RST 08:30 | PROVIDERS: ATTENDING PHYSICIAN Physician Assistant Surgical; FAMILY PHYSICIAN Family Medicine | DX: I69.198 Other sequelae of nontraumatic intracerebral hemorrhage (principal); Z73.6 Limitation of activities due to disability; R26.2 Difficulty in walking, not elsewhere classified; R26.89 Other abnormalities of gait and mobility; M62.81 Muscle weakness (generalized); M25.561 Pain in right knee; S83.241D Other tear of medial meniscus, current injury, right knee, subsequent encounter; M70.41 Prepatellar bursitis, right knee; M25.552 Pain in left hip; I69.254 Hemiplegia and hemiparesis following other nontraumatic intracranial hemorrhage affecting left non-dominant side; R49.0 Dysphonia; J38.5 Laryngeal spasm; R13.12 Dysphagia, oropharyngeal phase | CPT/HCPCS: 92507; 92524; 92526; 92610; 97110; 97112; 97116; 97164; 97530 ==

== ENCOUNTER 2025-02-01 22:36 | Emergency (ER) | payer MEDICARE, OTHER, SELFPAY ==
[2025-02-01 22:36] VITALS: BMI 19.2
[2025-02-01 22:37] VITALS: BP 198/97
[2025-02-01 22:52] LABS: Hematocrit 36.3 % (37.0-47.0); Hemoglobin 11.8 g/dL (12.0-16.0); Mean Corp Hgb Conc. 32.5 g/dL (33.0-37.0); Mean Corpuscular Volume 98.6 fL (81.0-99.0); Nucleated Red Blood Cells % 0 %; Platelet Count 199 10^3/uL (130-400); Red Cell Dist. Width 13.2 % (11.5-14.5)
[2025-02-01 23:00] VITALS: BP 167/87
[2025-02-01 23:15] LABS: ALT (SGPT) 24 U/L (0-35); AST (SGOT) 23 U/L (14-36); Albumin 4.5 g/dl (3.5-5.0); Alkaline Phosphatase 47 U/L (38-126); Blood Urea Nitrogen 23 mg/dl (7-17); Calcium 9.0 mg/dl (8.4-10.2); Carbon Dioxide 22 mmol/L (22-30); Chloride 106 mmol/L (98-107); Estimated Creatinine Clearance 51 ml/min; Glucose 96 mg/dl (70-99); Potassium 4.1 mmol/L (3.5-5.1); Sodium 136 mmol/L (135-145); Total Protein 6.5 g/dl (6.3-8.2); eGFR > 60.00
[2025-02-01 23:26] LABS: Troponin I < 0.012 ng/ml
[2025-02-01 23:30] VITALS: BP 164/84
[2025-02-02 00:19] VITALS: BP 163/78
[2025-02-02 01:00] VITALS: BP 169/91
[2025-02-02 02:34] VITALS: BP 155/96
--- NOTE | 2025-02-02 02:53 | ED.GENMED ---
History of Present Illness
General
Chief Complaint: Blood Pressure Problem
Source: patient
Exam Limitations: none
Time Seen by Provider: 02/02/25 02:28
Nursing documentation reviewed up to this point in time: agreed with
History of Present Illness
History of Present Illness:
Note:
CHIEF COMPLAINT(S)
Headache and elevated blood pressure.
HISTORY OF PRESENT ILLNESS
The patient is a 69-year-old female with a history of hypertension, who presents with a headache and elevated blood pressure. She noted a blood pressure reading of 150/100 mmHg after consuming a salty meal (a burrito) and subsequently developed a
headache. The patient was concerned about this elevation in blood pressure potentially due to dietary sodium intake and anxiety related to monitoring her blood pressure. She regularly monitors her blood pressure every few days. On this occasion,
upon noting the high reading, she took an additional 100 mg dose of Labetalol. The headache lasted she believes a half hour. However, she wasnt specific about the duration. The patient denies any chest pain, shortness of breath, abdominal pain, or
recent illnesses such as cough or cold. Her primary medication adjustments for hypertension were made jointly by her drill sharpener operator and primary care provider about a year ago. She is currently asymptomatic.
PAST MEDICAL AND SURGICAL HISTORY
The patient has a history of hypertension and prior mention of a hemorrhagic event, although no current signs of bleeding were detected.
CHRONIC MEDICAL CONDITIONS SIGNIFICANTLY AFFECTING CARE
Hypertension, fluid retention in the legs.
MEDICATIONS
BP MEDS:
-Labetalol
-Losartan
REVIEW OF SYSTEMS
- Neurological: Headache, no numbness or tingling, no new one-sided weakness.
- Respiratory: No wheezing, no shortness of breath.
- Cardiovascular: Elevated blood pressure without chest pain.
- Gastrointestinal: Feeling bloated after a salty meal; no abdominal pain.
PHYSICAL EXAM
General: Alert, no acute distress.
Skin: Warm, dry.
Head: Normocephalic, atraumatic.
Neck: Supple, trachea midline.
Eye Ears, Nose, Mouth, and Throat: Oral mucosa moist.
Cardiovascular: Regular rate and rhythm, no murmurs. Normal peripheral perfusion, no edema.
Respiratory: Respirations are non-labored. No wheezes, rales, or rhonchi
Gastrointestinal: Abdomen nondistended.
Back: Normal range of motion, normal alignment.
Musculoskeletal: Normal range of motion, normal strength.
Neurological: Alert and oriented to person, place, time, and situation, mild to moderate left sided hemiparesis from prior stroke. Normal finger to nose, heel to salomon.
Psychiatric: Cooperative, appropriate mood & affect.
PROBLEM LIST
Acute: Headache, elevated blood pressure.
Chronic: Hypertension, fluid retention in legs.
PLAN
1. The patient is advised to follow up with her drill sharpener operator to possibly adjust medication.
2. Continue monitoring blood pressure while being mindful of emotional and dietary triggers.
3. Return to the clinic if there is a worsening headache or other concerning symptoms.
DIFFERENTIAL DIAGNOSIS
The Differential Diagnosis includes, in no particular order and is not limited to:
1. Essential hypertension exacerbation
2. Medication side effects
3. Anxiety-induced blood pressure elevation
4. Dietary-induced hypertension
5. Medication non-compliance or suboptimal dosage
6. Secondary hypertension (e.g., renal causes)
7. Pheochromocytoma
8. Intracranial hemorrhage (ruled out with CT)
9. Intracranial mass (considered low likelihood)
10. Cardiac ischemia (ruled out with EKG)
Disposition:
SUMMARY OF ENCOUNTER
The patient, a 69-year-old female, presented to the emergency department with concerns of high blood pressure and an associated headache, which has since resolved. She is currently asymptomatic. The patient reported taking an extra dose of Labetalol
due to her symptoms. On physical examination, she appeared well and in no acute distress.
INDEPENDENT REVIEW OF LABS AND INTERPRETATION OF TESTS
My independent review of CBC indicates mild leukopenia. My independent review of BMP is unremarkable. My independent head CT interpretation shows no acute findings.
PLAN
The patient is advised to continue monitoring her blood pressure and avoid dietary triggers that may elevate it. She should also follow up with her primary care provider to evaluate her current antihypertensive regimen for any necessary
modifications.
FOLLOW-UP INSTRUCTIONS
Please call the office immediately to schedule a follow-up visit with your drill sharpener operator and primary care provider to reassess your current blood pressure management plan.
MEDICATION RECONCILIATION
The patient reported taking an extra dose of Labetalol (100 mg) due to elevated blood pressure.
MEDICAL DECISION MAKING
- Number and Complexity of Problems Addressed: Chronic conditions affecting care include hypertension and the episode of elevated blood pressure with associated headache.
- Data:
Category 1: My independent review of the patients labs indicated mild leukopenia on CBC and a normal BMP. A head CT was obtained and reviewed, showing no acute intracranial pathology.
- Risk: Prescription medication management was reviewed with the patient taking an additional dose of Labetalol for blood pressure control.
DIAGNOSIS
- Hypertensive urgency, resolved (I10).
- Headache, unspecified (R51).
- Mild leukopenia (D72.819).
Past History
Past History
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
ED Past Surgical History: (X 3) and Other (Surgery for deviated septum, bilateral foot surgery, Brain surgerym facial surgery )
Social History
Tobacco: Former smoker
Alcohol: None
Personal:
Living: assisted living
Review of Systems
Review of Systems
All Other Systems: ROS reviewed and negative except as documented in HPI and ROS
Phy Exam
Physical Exam
Physical Exam:
see hpi
Course
Orders/Labs/Results
Orders:
Orders
02/01/25 22:39
EKG [Electrocardiogram (*1)] Urgent
Reason for Study: Hypertension, Benign
EKG- Treatment ONCE
02/01/25 22:43
Complete Blood Count/With Diff Urgent
Comprehensive Metabolic Panel Routine
Troponin I Urgent
02/01/25 22:47
CT Head W/o Iv Contrast Urgent
Comment:
Reason For Exam: headache, htn, hx of hemorrhagic cva
Abnormal Lab Results
02/01/25
22:43
WBC 4.3 L 10^3/uL
(4.8-10.8)
RBC 3.68 L 10^6/uL
(4.20-5.40)
Hgb 11.8 L g/dL
(12.0-16.0)
Hct 36.3 L %
(37.0-47.0)
MCH 32.1 H pg
(27.0-31.0)
MCHC 32.5 L g/dL
(33.0-37.0)
BUN 23 H mg/dl
(7-17)
02/01/25 22:43
02/01/25 22:43
Vital Signs
Initial and Last Documented VS:
Initial Vital Signs
Temp Pulse Resp BP Pulse Ox
99.4 F 77 17 198/97 99
02/01/25 22:37 02/01/25 22:37 02/01/25 22:37 02/01/25 22:37 02/01/25 22:37
Last Documented Vital Signs
Temp Pulse Resp BP Pulse Ox
99.4 F 78 16 155/96 98
02/01/25 22:37 02/02/25 02:34 02/02/25 02:34 02/02/25 02:34 02/02/25 02:53
*Pulse Oximetry
SaO2: 98
Oxygen Mode of Delivery: Room air
Patient hypoxic: no
*Critical Care Note
Total Time (30-74mins, 75-104mins- exclusive of procedures): Not Applicable
ED Attending Note
-
Portions of this chart may have been created with voice recognition software.� Occasional wrong word or��sound alike� substitutions may have occurred due to the inherent limitations of voice recognition software.
Discharge Plan
Departure
Patient Disposition: Home (Routine Discharge)
Date of Disposition: 02/02/25
Time of Disposition: 02:48
Patient with high blood pressure during this ER visit?: Yes
Condition: Good
Discharge Problem:
Essential hypertension, Tension headache
Instructions: High Blood Pressure (DC), BLOOD PRESSURE
Prescriptions:
No Action
vilazodone [Viibryd] 40 MG tablet
40 mg PO DAILY
atorvastatin 20 mg tablet
20 mg PO QPM
hydrocodone-acetaminophen 10-325 mg tablet
1 tab PO Q6HPRN PRN (Reason: moderate pain)
quetiapine 25 mg Tablet
25 mg PO HSPRN PRN (Reason: sleep)
baclofen 10 mg Tablet
20 mg PO QID
gabapentin 100 mg Capsule
100 mg PO QIDPRN PRN (Reason: nerve pain)
losartan 50 mg Tablet
100 mg PO DAILY
methotrexate sodium 2.5 mg Tablet
10 mg PO FR
folic acid 1 mg Tablet
1 mg PO DAILY
labetalol 200 mg Tablet
200 mg PO TID
pantoprazole 40 mg Tablet,Delayed Release (Dr/Ec)
40 mg PO DAILY
magnesium 100 mg Tablet
100 mg PO DAILY
furosemide 20 mg Tablet
20 mg PO DAILY
estradiol 0.01 % (0.1 mg/gram) Cream
1 g VAGINAL DAILY
cholecalciferol (vitamin D3) [Vitamin D3] 25 mcg (1,000 unit) Tablet
25 mcg PO DAILY
Prolia 60 mg/mL Syringe
60 mg SC [id number]
Emgality Pen 120 mg/mL Pen Injector
120 mg SC DAILY PRN (Reason: migraine)
Gemtesa 75 mg Tablet
75 mg PO DAILY
Referrals:
UNKNOWN - PT DOES,NOT KNOW [Family Provider]
Activity Restrictions/Additional Instructions:
Please follow with your drill sharpener operator Dr. Vera, please call for a follow up appointment.
Please continue to monitor your symptoms.
PLEASE RETURN TO THE ER SHOULD YOU DEVELOP CHEST PAIN, SHORTNESS OF BREATH, NAUSEA OR VOMITING, NECK PAIN, PERSISTENT HEADACHE, OR ANY OTHER SIGNS OR SYMPTOMS WORRISOME TO YOU.
Interventions
Interventions:
*Risk Screen - Suicide Last Done: 02/01/25 22:40
*General Assessment Last Done: 02/01/25 22:40
*Neglect/Abuse Screening Last Done: 02/01/25 22:40
*ED- Fall Risk Assessment Last Done: 02/01/25 22:40
*ED COVID-19 Vaccine History Last Done: 02/01/25 22:40
*ED Influenza Vaccine History Last Done: 02/01/25 22:40
*Nursing Disposition Last Done: 02/02/25 03:17
ED- Cardiac Assessment Last Done: 02/01/25 22:57
ED- Neurological Assessment Last Done: 02/01/25 22:57
ED- Pulmonary Assessment Last Done: 02/01/25 22:57
Discharge Date and Time
Discharge Date/Time: 02/02/25 03:19
Print Language: [place]
== END 2025-02-02 03:19 | disposition home or self-care (01) ==
LOC: EMR 22:36
PROVIDERS: Emergency Medicine; EMERGENCY PHYSICIAN Student in an Organized Health Care Education/Training Program
DX: I10 Essential (primary) hypertension (principal); G44.209 Tension-type headache, unspecified, not intractable; D72.819 Decreased white blood cell count, unspecified; E78.00 Pure hypercholesterolemia, unspecified; R60.0 Localized edema; F32.A Depression, unspecified; Z86.73 Personal history of transient ischemic attack (TIA), and cerebral infarction without residual deficits; Z87.891 Personal history of nicotine dependence
CPT/HCPCS: 99284; 70450; 80053; 84484; 85025; 93005

== ENCOUNTER → 2025-02-05 13:17 | Outpatient (REF) | payer MEDICARE, OTHER, SELFPAY ==
[2025-02-05 14:01] LABS: Hematocrit 37.0 % (37.0-47.0); Hemoglobin 12.1 g/dL (12.0-16.0); Mean Corp Hgb Conc. 32.7 g/dL (33.0-37.0); Mean Corpuscular Volume 96.9 fL (81.0-99.0); Nucleated Red Blood Cells % 0 %; Platelet Count 258 10^3/uL (130-400); Red Cell Dist. Width 13.4 % (11.5-14.5)
[2025-02-05 15:35] LABS: ALT (SGPT) 21 U/L (0-35); AST (SGOT) 20 U/L (14-36); Albumin 4.4 g/dl (3.5-5.0); Alkaline Phosphatase 50 U/L (38-126); Blood Urea Nitrogen 15 mg/dl (7-17); Calcium 9.7 mg/dl (8.4-10.2); Carbon Dioxide 30 mmol/L (22-30); Chloride 102 mmol/L (98-107); Glucose 95 mg/dl (70-99); Potassium 4.6 mmol/L (3.5-5.1); Sodium 135 mmol/L (135-145); Total Protein 6.4 g/dl (6.3-8.2); eGFR > 60.00
== END ==
LOC: REG 13:17
PROVIDERS: ATTENDING PHYSICIAN Family Medicine; REFERRING PHYSICIAN Student in an Organized Health Care Education/Training Program
DX: D50.0 Iron deficiency anemia secondary to blood loss (chronic) (principal); I10 Essential (primary) hypertension
CPT/HCPCS: 36415; 80053; 85025

== ENCOUNTER 2025-02-18 15:47 | Outpatient (RCR) | payer MEDICARE, OTHER, SELFPAY | END 2025-02-18 23:59 | disposition home or self-care (01) | LOC: RST 15:47 | PROVIDERS: ATTENDING PHYSICIAN Physician Assistant Surgical; FAMILY PHYSICIAN Family Medicine | DX: I69.198 Other sequelae of nontraumatic intracerebral hemorrhage (principal); Z73.6 Limitation of activities due to disability; R26.2 Difficulty in walking, not elsewhere classified; R26.89 Other abnormalities of gait and mobility; M62.81 Muscle weakness (generalized); M25.561 Pain in right knee; S83.241D Other tear of medial meniscus, current injury, right knee, subsequent encounter; M70.41 Prepatellar bursitis, right knee; M25.552 Pain in left hip; I69.254 Hemiplegia and hemiparesis following other nontraumatic intracranial hemorrhage affecting left non-dominant side; R49.0 Dysphonia; J38.5 Laryngeal spasm; R13.12 Dysphagia, oropharyngeal phase | CPT/HCPCS: 92507; 92526; 97110; 97112; 97116; 97530 ==

== ENCOUNTER 2025-02-23 06:29 | Outpatient (RCR) | payer MEDICARE, OTHER, SELFPAY | END 2025-02-23 23:59 | disposition home or self-care (01) | LOC: ROT 06:29 | PROVIDERS: ATTENDING PHYSICIAN Orthopaedic Surgery; FAMILY PHYSICIAN Family Medicine | DX: Z47.89 Encounter for other orthopedic aftercare (principal); S52.501D Unspecified fracture of the lower end of right radius, subsequent encounter for closed fracture with routine healing; Z73.6 Limitation of activities due to disability; M62.81 Muscle weakness (generalized); I69.998 Other sequelae following unspecified cerebrovascular disease | CPT/HCPCS: 97018; 97166; 97535 ==

== ENCOUNTER 2025-03-09 17:01 | Emergency (ER) | payer MEDICARE, OTHER, SELFPAY ==
[2025-03-09 17:16] VITALS: BP 119/77
[2025-03-09 17:48] LABS: Hematocrit 33.7 % (37.0-47.0); Hemoglobin 11.3 g/dL (12.0-16.0); Mean Corp Hgb Conc. 33.5 g/dL (33.0-37.0); Mean Corpuscular Volume 94.7 fL (81.0-99.0); Nucleated Red Blood Cells % 0 %; Platelet Count 199 10^3/uL (130-400); Red Cell Dist. Width 12.8 % (11.5-14.5)
[2025-03-09 18:10] LABS: ALT (SGPT) 18 U/L (0-35); AST (SGOT) 22 U/L (14-36); Albumin 4.0 g/dl (3.5-5.0); Alkaline Phosphatase 36 U/L (38-126); Blood Urea Nitrogen 11 mg/dl (7-17); Calcium 8.8 mg/dl (8.4-10.2); Carbon Dioxide 30 mmol/L (22-30); Chloride 99 mmol/L (98-107); Glucose 95 mg/dl (70-99); Potassium 3.7 mmol/L (3.5-5.1); Sodium 132 mmol/L (135-145); Total Protein 5.9 g/dl (6.3-8.2); eGFR > 60.00
--- NOTE | 2025-03-09 19:19 | ED.GENMED ---
History of Present Illness
General
Chief Complaint: Blood Pressure Problem
Source: patient
Exam Limitations: none
Time Seen by Provider: 03/09/25 18:35
Nursing documentation reviewed up to this point in time: agreed with
History of Present Illness
History of Present Illness:
Patient presents to ED secondary to 2-day history of lightheadedness along with 'fuzzy feeling' in her head. Initially, symptoms started, when she got up and was walking her dog. She checked her blood pressure and it was elevated. So she decided
to take her blood pressure little early in the morning, with resolution of symptoms. This morning, once again, her symptoms started when she woke up. Patient checked her blood pressure again and it was elevated. Patient proceeded to take her
blood pressure little early again, but this time, her symptoms persisted. Denies headache. Denies blurred vision. Denies difficulty with speech. Denies loss of sensation or weakness. Patient feels 'off balance' when she is walking due to
lightheadedness. Patient's medical history significant for hemorrhagic stroke in 2021, with residual left-sided weakness and numbness. Patient walks with cane at baseline since the stroke. Patient does not take any blood thinning medication.
Denies recent illness. Denies recent change in medications or diet. Denies loss of appetite. Denies previous history of similar symptoms.
Past History
Past History
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
ED Past Surgical History: (X 3) and Other (Surgery for deviated septum, bilateral foot surgery, Brain surgerym facial surgery )
Social History
Tobacco: Former smoker
Alcohol: None
Personal:
Living: assisted living
Review of Systems
Review of Systems
Allergies reviewed?: Yes
All Other Systems: ROS reviewed and negative except as documented in HPI and ROS
Constitutional: Reports no symptoms; Denies fever
EENT: Reports no symptoms
Respiratory: Reports no symptoms
Cardiac: Reports no symptoms
ABD/GI: Reports no symptoms; Denies nausea or vomiting
Musculoskeletal: Reports no symptoms
Skin: Reports no symptoms
Neurological: Reports dizzy; Denies headache, weakness or numbness
Phy Exam
Physical Exam
Physical Exam:
Physical Exam
General: no apparent distress, not acutely ill. afebrile
Head: nc/at. eomi
Neck: supple. normal range of motion
Heart: s1/s2 regular rate and rhythm
Lungs: no acute respiratory distress. clear bilaterally
Abdomen: normal bowel sounds. not tender.
Neuro: alert and oriented x 3. no focal neurological deficits. normal speech
Skin: no rash
Psychiatric: well kept. interactive and cooperative
Extremities: no edema. no calf tenderness.
Course
Orders/Labs/Results
Orders:
Orders
03/09/25 17:18
CT Head W/o Iv Contrast Urgent
Comment:
Reason For Exam: dizziness, high BP
03/09/25 17:19
Electrocardiogram (*1) Urgent
Reason for Study: Vertigo / Dizzy
EKG- Treatment ONCE
03/09/25 17:32
Complete Blood Count/With Diff Urgent
Comprehensive Metabolic Panel Urgent
03/09/25 19:14
Orthostatic VS- Treatment ONCE
Abnormal Lab Results
03/09/25
17:32
RBC 3.56 L 10^6/uL
(4.20-5.40)
Hgb 11.3 L g/dL
(12.0-16.0)
Hct 33.7 L %
(37.0-47.0)
MCH 31.7 H pg
(27.0-31.0)
Absolute Lymphs (auto) 1.0 L 10^3/uL
(1.2-3.4)
Neutrophils % 77.4 H %
(42.2-75.2)
Lymphocytes % 14.9 L %
(20.5-51.1)
Sodium 132 L mmol/L
(135-145)
Alkaline Phosphatase 36 L U/L
(38-126)
Total Protein 5.9 L g/dl
(6.3-8.2)
03/09/25 17:32
03/09/25 17:32
Vital Signs
Initial and Last Documented VS:
Initial Vital Signs
Temp Pulse Resp BP Pulse Ox
98.4 F 78 16 119/77 98
03/09/25 17:16 03/09/25 17:16 03/09/25 17:16 03/09/25 17:16 03/09/25 17:16
Last Documented Vital Signs
Temp Pulse Resp BP Pulse Ox
98.4 F 78 16 119/77 98
03/09/25 17:16 03/09/25 17:16 03/09/25 17:16 03/09/25 17:16 03/09/25 19:22
MDM/Problems Addressed
MDM/Problems Addressed:
Orthostatic vital signs noted, with mild lightheaded sensation when standing up. Patient's presenting symptoms, nonspecific, may be multifactorial, including component of dehydration along with fluctuation in her blood pressure. As such, advised
patient to increase fluid intake at home, along with keeping daily log of her blood pressure over the next 1 to 2 weeks, to be discussed with her primary care physician. At this time, patient feels comfortable going home, and will follow-up with
her PCP, with consideration to return to ED with worsening or different symptoms.
*Pulse Oximetry
SaO2: 98
Oxygen Mode of Delivery: Room air
Patient hypoxic: no
*Critical Care Note
Total Time (30-74mins, 75-104mins- exclusive of procedures): Not Applicable
ED Attending Note
-
Portions of this chart may have been created with voice recognition software.� Occasional wrong word or��sound alike� substitutions may have occurred due to the inherent limitations of voice recognition software.
Discharge Plan
Departure
Patient Disposition: Home (Routine Discharge)
Date of Disposition: 03/09/25
Time of Disposition: 19:34
Patient with high blood pressure during this ER visit?: No
Condition: Fair
Discharge Problem:
Dizziness
Instructions: Dizziness in adults - ED (DC)
Prescriptions:
No Action
vilazodone [Viibryd] 40 MG tablet
40 mg PO DAILY
atorvastatin 20 mg tablet
20 mg PO QPM
hydrocodone-acetaminophen 10-325 mg tablet
1 tab PO Q6HPRN PRN (Reason: moderate pain)
quetiapine 25 mg Tablet
25 mg PO HSPRN PRN (Reason: sleep)
baclofen 10 mg Tablet
20 mg PO QID
gabapentin 100 mg Capsule
100 mg PO QIDPRN PRN (Reason: nerve pain)
losartan 50 mg Tablet
100 mg PO DAILY
methotrexate sodium 2.5 mg Tablet
10 mg PO FR
folic acid 1 mg Tablet
1 mg PO DAILY
labetalol 200 mg Tablet
200 mg PO TID
pantoprazole 40 mg Tablet,Delayed Release (Dr/Ec)
40 mg PO DAILY
magnesium 100 mg Tablet
100 mg PO DAILY
furosemide 20 mg Tablet
20 mg PO DAILY
estradiol 0.01 % (0.1 mg/gram) Cream
1 g VAGINAL DAILY
cholecalciferol (vitamin D3) [Vitamin D3] 25 mcg (1,000 unit) Tablet
25 mcg PO DAILY
Prolia 60 mg/mL Syringe
60 mg SC [id number]
Emgality Pen 120 mg/mL Pen Injector
120 mg SC DAILY PRN (Reason: migraine)
Gemtesa 75 mg Tablet
75 mg PO DAILY
Referrals:
Jackie Staley MD [Family Provider, Family Practice]
Activity Restrictions/Additional Instructions:
As discussed, please follow-up with your primary care physician for reevaluation. In the meantime, started recommend increasing fluid intake along with keeping daily log of your blood pressure, to be discussed with your primary care physician.
Interventions
Interventions:
*Risk Screen - Suicide Last Done: 03/09/25 17:02
*General Assessment Last Done: 03/09/25 19:15
*Neglect/Abuse Screening Last Done: 03/09/25 19:15
*ED COVID-19 Vaccine History Last Done: 03/09/25 19:15
*ED Influenza Vaccine History Last Done: 03/09/25 19:15
[facility] Risk Assessment Tool Last Done: 03/09/25 19:15
*Nursing Disposition Last Done: 03/09/25 19:53
ED- Cardiac Assessment Last Done: 03/09/25 19:15
ED- Neurological Assessment Last Done: 03/09/25 19:15
ED- Pulmonary Assessment Last Done: 03/09/25 19:15
Discharge Date and Time
Discharge Date/Time: 03/09/25 19:53
Print Language: [id number]
[2025-03-09 19:20] VITALS: BP 125/77; BP 149/90; BP 160/88; PULSE 75
== END 2025-03-09 19:53 | disposition home or self-care (01) ==
LOC: EMR 17:01
PROVIDERS: EMERGENCY PHYSICIAN Emergency Medicine; FAMILY PHYSICIAN Family Medicine
DX: R42 Dizziness and giddiness (principal); I10 Essential (primary) hypertension; E78.00 Pure hypercholesterolemia, unspecified; I69.354 Hemiplegia and hemiparesis following cerebral infarction affecting left non-dominant side; F32.A Depression, unspecified; Z87.891 Personal history of nicotine dependence
CPT/HCPCS: 99284; 70450; 80053; 85025; 93005

== ENCOUNTER 2025-03-15 23:54 | Inpatient (IN) | payer MEDICARE, OTHER, SELFPAY ==
[2025-03-15 19:17] VITALS: BP 146/86
[2025-03-15 19:21] VITALS: BMI 21.0
[2025-03-15 19:37] LABS: Hematocrit 33.7 % (37.0-47.0); Hemoglobin 11.5 g/dL (12.0-16.0); Mean Corp Hgb Conc. 34.1 g/dL (33.0-37.0); Mean Corpuscular Volume 93.1 fL (81.0-99.0); Nucleated Red Blood Cells % 0 %; Platelet Count 212 10^3/uL (130-400); Red Cell Dist. Width 12.7 % (11.5-14.5)
[2025-03-15 19:52] LABS: ALT (SGPT) 21 U/L (0-35); AST (SGOT) 25 U/L (14-36); Albumin 4.4 g/dl (3.5-5.0); Alkaline Phosphatase 42 U/L (38-126); Blood Urea Nitrogen 16 mg/dl (7-17); Calcium 8.6 mg/dl (8.4-10.2); Carbon Dioxide 24 mmol/L (22-30); Chloride 97 mmol/L (98-107); Estimated Creatinine Clearance 72 ml/min; Glucose 120 mg/dl (70-99); Potassium 4.3 mmol/L (3.5-5.1); Sodium 127 mmol/L (135-145); Total Protein 6.4 g/dl (6.3-8.2); eGFR > 60.00
[2025-03-15 20:00] VITALS: BP 125/83
[2025-03-15 21:00] VITALS: BP 125/75
[2025-03-15 22:00] VITALS: BP 130/81
[2025-03-15 22:11] LABS: Urine Character Clear (Clear)
[2025-03-15 22:23] LABS: Urine Red Blood Cell 0-2 /HPF (0-2); Urine Squamous Cell 0-2 /LPF (Few); Urine White Cell 0-2 /HPF (0-5)
--- NOTE | 2025-03-15 22:26 | ED.GENMED ---
History of Present Illness
General
Chief Complaint: Change in Mental Status
Source: patient and family
Exam Limitations: none
Time Seen by Provider: 03/15/25 19:13
Nursing documentation reviewed up to this point in time: agreed with
History of Present Illness
History of Present Illness:
Patient to the emergency department for evaluation of increasing weakness. Patient states that she was home alone and began to feel weak. She tried to grab onto a railing unsuccessfully and slid down approximately 6 steps. She was unable to get
herself up. Family found her at the bottom of the steps. They assisted her to a standing position but she complained of feeling weak. EMS was contacted by family and patient was transported to the emergency department. She reports a history of a
hemorrhagic stroke in 2021. She denies any headache or vision changes. She denies any shortness of breath chest pain or pressure. She denies any nausea vomiting or diarrhea. Family reports her appetite is generally poor. Patient admits to
eating very little today.
Past History
Past History
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
ED Past Surgical History: (X 3) and Other (Surgery for deviated septum, bilateral foot surgery, Brain surgerym facial surgery )
Social History
Tobacco: Former smoker
Alcohol: None
Personal:
Living: assisted living
Review of Systems
Review of Systems
Allergies reviewed?: Yes
All Other Systems: ROS reviewed and negative except as documented in HPI and ROS
Constitutional: Reports no symptoms
EENT: Reports no symptoms
Respiratory: Reports no symptoms
Cardiac: Reports no symptoms
ABD/GI: Reports no symptoms
: Reports no symptoms
Musculoskeletal: Reports no symptoms
Skin: Reports no symptoms
Neurological: Reports weakness
Psychiatric: Reports no symptoms
Phy Exam
General Physical Exam
General Presentation: mild distress
General age: appears older than age
General Skin: warm and dry
General Habitus: frail
General Mental: alert
General Hydration: dry mucous membranes
Eye Exam
Eye Exam: PERRL, EOMI, conjunctiva normal and globe normal
Cardiovascular Exam
Cardiovascular Exam: regular rate/rhythm and no edema
Pulmonary Exam
Pulmonary Exam: lungs clear and no respiratory distress
Neurological Exam
Neurological Exam: alert, oriented x3 and CN II-XII intact
NIH Stroke Score
Level of Consciousness: 0 - Alert
LOC questions: 0-Answers both correctly
LOC Commands: 0-Performs both correctly
Best Gaze: 0-Normal
Visual [place]: 0=Normal, no visual loss
Facial palsy: 0=Normal, symmetrical
Motor - Right Arm: 0=No drift 10 seconds
Motor - Left Arm: 0=No drift 10 seconds
Motor - Right Le-No drift 5 seconds
Motor - Left Le-Drift < 5 seconds
Limb Ataxia: 2-Present in two limbs (chronic)
Sensation: 0-Normal
Best Language: 0-No aphasia
Dysarthria: 0-Normal
Extinction and Inattention: 0-No abnormality
Total Score:: 3
Musculoskeletal Exam
Musculoskeletal Exam: neuro vasc intact and other (Left-sided weakness s/p hemorrhagic stroke 2021. Left lower extremity with brace intact. She is able to bend at knee.)
Skin Exam
Skin Exam: normal color, warm/dry and no rash
Psychiatric Exam
Psychiatric Exam: normal mood/affect
Course
Orders/Labs/Results
Orders:
Orders
03/15/25 19:31
Electrocardiogram (*1) Urgent
Reason for Study: Chest Pain
EKG- Treatment ONCE
Complete Blood Count/With Diff Urgent
Comprehensive Metabolic Panel Urgent
03/15/25 19:57
CT Head W/o Iv Contrast Urgent
Comment:
Reason For Exam: change in mental status
03/15/25 21:59
Urinalysis Reflex To Culture Urgent
Date Specimen was Collected: 03/15/25
Time Specimen was Collected: 21:54
Urine Microscopic Reflex Cult Urgent
03/15/25 23:36
Admit/Transfer Patient As Directed
Co-Sign Provider:
Level of Care: Inpatient admission
Assign to:: Medical/Surgical
Physician / Group: Hospitalist
Diagnosis: Hypovolemic hyponatremia
Reason for Hospitalization: Hypovolemic hyponatremia
Expected length of stay greater than two midnights?: Yes
ELOS- Estimated Length of Stay in days: 3
I certify the patient meets the requirements for IP care: Yes
PRN Pain Medication Management As Directed
May give lesser potent ordered pain med per pt: Yes
preference::
Protocol:: Medication orders for pain may be administered in a
manner that supports deferring to patient preference
when the pt is:
- Requesting an ordered lesser potent pain medication.
Least to most potent pain medications are defined
as: acetaminophen < NSAID < tramadol < opioids
(morphine, oxycodone, hydromorphone).
- Requesting a lesser dose of the same medication IF
ORDERED.
- Requesting a less intrusive route of administration
if both routes are prescribed by the provider (PO <
IV).
03/15/25 23:37
Code Status As Directed
Resuscitation Status: Full Code
Abnormal Lab Results
03/15/25 03/15/25
19:31 21:59
RBC 3.62 L 10^6/uL
(4.20-5.40)
Hgb 11.5 L g/dL
(12.0-16.0)
Hct 33.7 L %
(37.0-47.0)
MCH 31.8 H pg
(27.0-31.0)
Absolute Neuts (auto) 6.9 H 10^3/uL
(1.4-6.5)
Absolute Lymphs (auto) 0.6 L 10^3/uL
(1.2-3.4)
Neutrophils % 86.4 H %
(42.2-75.2)
Lymphocytes % 7.2 L %
(20.5-51.1)
Sodium 127 L mmol/L
(135-145)
Chloride 97 L mmol/L
(98-107)
Glucose 120 H mg/dl
(70-99)
Urine Ketones 2+ A
(Negative)
Urine Bacteria (Reflex) Few A
(Negative)
Urine Albumin (Reflex) 1+ A
(Neg - Trace)
03/15/25 19:31
03/15/25 19:31
Vital Signs
Initial and Last Documented VS:
Initial Vital Signs
Temp Pulse Resp BP Pulse Ox
98.3 F 83 12 146/86 96
03/15/25 19:17 03/15/25 19:17 03/15/25 19:17 03/15/25 19:17 03/15/25 19:17
Last Documented Vital Signs
Temp Pulse Resp BP Pulse Ox
98.3 F 79 12 141/76 98
03/15/25 19:17 03/16/25 00:15 03/15/25 20:37 03/16/25 00:00 03/16/25 00:17
*Radiology
Radiology exam reviewed: radiology read reviewed
*Pulse Oximetry
SaO2: 96
Oxygen Mode of Delivery: Room air
Patient hypoxic: no
*Critical Care Note
Total Time (30-74mins, 75-104mins- exclusive of procedures): Not Applicable
Update Note
Update Note:
Patient to emergency department with complaint of increasing weakness. States she was ambulating at home today when she began to feel lightheaded and weak. She attempted to grab onto a railing unsuccessfully. She then slid down approximately 6
steps. She denies hitting her head. She was unable to get herself up. Family found her at the bottom of the steps, alert and oriented. They were able to get her to a standing position but she was unable to ambulate due to weakness. She was
brought to the emergency department by EMS. On arrival she is alert and oriented. Vital signs are stable and she remains afebrile. Labs reviewed. WBC 7.9. Hemoglobin 11.5 hematocrit 33.7, stable. Sodium 127. BUN and creatinine are normal. UA
negative for UTI. Patient given IV fluids on arrival to ED. CT of head completed, no acute findings. Patient is still unable to transfer safely without maximum assistance. Will admit to the hospitalist service for hyponatremia, weakness. Case
discussed with Dr. Johnson.
ED Attending Note
-
Portions of this chart may have been created with voice recognition software.� Occasional wrong word or��sound alike� substitutions may have occurred due to the inherent limitations of voice recognition software.
Discharge Plan
Departure
Patient Disposition: Admit
Date of Disposition: 03/15/25
Time of Disposition: 22:38
Presentation/result/management discussed w/ accepting MD/DO: Hospitalist
Condition: Fair
Covid-19: Not Applicable
Discharge Problem:
Acute hyponatremia, Weakness
Interventions
Interventions:
*Risk Screen - Suicide Last Done: 03/15/25 19:21
*General Assessment Last Done: 03/15/25 19:21
*Neglect/Abuse Screening Last Done: 03/15/25 19:21
*ED COVID-19 Vaccine History Last Done: 03/15/25 19:21
*ED Influenza Vaccine History Last Done: 03/15/25 19:21
[facility] Risk Assessment Tool Last Done: 03/15/25 19:33
ED- Pulmonary Assessment Last Done: 03/15/25 19:34
ED- Neurological Assessment Last Done: 03/15/25 19:34
ED- Cardiac Assessment Last Done: 03/15/25 19:34
ED Swallowing Screen Last Done: 03/16/25 00:18
[2025-03-15 23:00] VITALS: BP 135/79
--- NOTE | 2025-03-15 23:28 | HPS.HSE ---
Family Physician
-
Family Physician: NOT KNOW UNKNOWN - PT DOES
Chief Complaint
-
Weakness
History of Present Illness
69 woman comes in with increasing weakness. She was home alone and began to feel weak. She tried to grab onto a railing unsuccessfully and slid down approximately 6 steps. She was unable to get herself up. Family found her at the bottom of the
steps. History of a hemorrhagic stroke in 2021. She denies any headache or vision changes. She denies any shortness of breath chest pain or pressure. She denies any nausea vomiting or diarrhea. Family reports her appetite is generally poor.
Patient admits to eating very little today. At the time of my interview she was sleeping, but awoke easily to exam. Able to answer questions appropriately.
Medical History
Past Medical History
Past Medical History: Reports Other
Additional Past Medical History:
CVA (After brain surgery with left sided numbness),
essential HTN,
Hypercholesterolemia
Depression
(X 3)
Surgery for deviated septum,
bilateral foot surgery,
Brain surgery
facial surgery
hypertension
rheumatoid arthritis
osteoporosis
Left hemiparesis
chronic neck and back pain
spinal arthritis
fracture of right wrist
Carcinoma in situ of vulva, laser treatment
alcohol dependence in remission
Migraines
GERD
Laryngospasm
kicked in the face by horse
ORIF right wrist - [place] 07/2023
Left elbow stitches after fall in [place] 05/2024
wrist surgert hardware taken
Stroke 02/25/2022
DH-HTN (ER Visit) 04/04/2024
Past Surgical History: Reports Other
Additional Past Surgical History:
See above
Social History
Tobacco: Non-smoker
Alcohol: None
Drug: None
Family History
Family History: Not pertinent
Allergies / Home Medications
Allergies reflects when Allergies were last updated in [employer].
Home Medications with original date entered in [employer]
Allergy/Medication List:
Allergies
Allergy/AdvReac Type Severity Reaction Status Date / Time
Sulfa (Sulfonamide Allergy Intermediate hives, Verified 03/09/25 17:20
Antibiotics) system
clogged/blocked
Home Medications
vilazodone 40 mg tablet (Viibryd) 40 mg PO DAILY Mental Health/Anxiety 08/16/13
atorvastatin 20 mg tablet 20 mg PO QPM High Cholesterol 02/25/22
hydrocodone 10 mg-acetaminophen 325 mg tablet 1 tab PO Q6HPRN PRN moderate pain 02/25/22
baclofen 10 mg tablet 20 mg PO QID Muscle Spasms 01/04/23
gabapentin 100 mg capsule 100 mg PO QIDPRN PRN nerve pain 01/04/23
quetiapine 25 mg tablet 25 mg PO HSPRN PRN sleep 01/04/23
folic acid 1 mg tablet 1 mg PO DAILY Supplement 07/01/23
losartan 50 mg tablet 100 mg PO DAILY Blood Pressure 07/01/23
methotrexate sodium 2.5 mg tablet 10 mg PO FR Autoimmune Disorder 07/01/23
denosumab 60 mg/mL subcutaneous syringe (Prolia) 60 mg SC [id number] 02/02/25
estradiol 0.01% (0.1 mg/gram) vaginal cream 1 g vaginal DAILY 02/02/25
furosemide 20 mg tablet 20 mg PO DAILY 02/02/25
galcanezumab-gnlm 120 mg/mL subcutaneous pen injector (Emgality Pen) 120 mg SC DAILY PRN migraine 02/02/25
labetalol 200 mg tablet 100 mg PO TID 02/02/25
magnesium 100 mg tablet 100 mg PO DAILY 02/02/25
pantoprazole 40 mg tablet,delayed release 40 mg PO DAILY 02/02/25
vibegron 75 mg tablet (Gemtesa) 75 mg PO DAILY 02/02/25
Review of Systems
-
History Source: Patient
A 12 point ROS was completed and negative except as noted: Yes
Physical Exam
Vital Signs
Vital Signs
Temp Pulse Resp BP Pulse Ox
98.3 F 82 12 130/81 96
03/15/25 19:17 03/15/25 22:45 03/15/25 20:37 03/15/25 22:00 03/15/25 22:33
Physical Exam
General: Well Developed, Well Nourished, No Apparent Distress and Comfortable
HEENT: [place] Conjunctivae, Nose Appears Normal and Ears Appear Normal
Respiratory: Clear
Cardiac: S1/S2 and Regular Rhythm
GI: Soft, Non Tender and Non Distended
Musculoskeletal: No Clubbing and No Cyanosis
Skin: Warm and Dry
Neuro: Awake and Alert
Psych: Calm
Laboratory Results
-
03/15/25 19:31
03/15/25 19:31
Laboratory Results
Total Bilirubin 0.4 mg/dl (0.2-1.3) 03/15/25 19:31
AST 25 U/L (14-36) 03/15/25 19:31
ALT 21 U/L (0-35) 03/15/25 19:31
Alkaline Phosphatase 42 U/L (38-126) 03/15/25 19:31
Data Reviewed
-
Lab Data: Labs Reviewed by me
Impression/Plan
-
IMPRESSION:
69 woman with low Na and decreased PO intake, and weakness.
PLAN:
1. Weakness, likely from hypovolemic hyponatremia
Normal saline
Recheck electrolytes in am
PT consult in am
Dietary consult to help with appetite
Otherwise continue usual meds
Full code
VCD for DVTp
[2025-03-16] VITALS: BP 141/76
[2025-03-16 01:13] VITALS: BP 148/80; BMI 20.7
[2025-03-16] MEDS: NSS 1000 IV ×2 (02:00→16:54)
--- NOTE | 2025-03-16 02:30 | PTCARENOTE ---
Pt pulled over from stretcher to bed. pt aaox3 and pleasant. VSS and no c/o pain. Bed alarm placed d/t recent fall at home. hx of stroke w/ L sided weakness. Pt oriented to room, call chowdhury within reach, and plan of care ongoing.
[2025-03-16 05:59] LABS: Hematocrit 33.6 % (37.0-47.0); Hemoglobin 11.2 g/dL (12.0-16.0); Mean Corp Hgb Conc. 33.3 g/dL (33.0-37.0); Mean Corpuscular Volume 93.6 fL (81.0-99.0); Platelet Count 199 10^3/uL (130-400); Red Cell Dist. Width 12.6 % (11.5-14.5)
[2025-03-16 06:14] LABS: Blood Urea Nitrogen 10 mg/dl (7-17); Calcium 8.3 mg/dl (8.4-10.2); Carbon Dioxide 26 mmol/L (22-30); Chloride 104 mmol/L (98-107); Estimated Creatinine Clearance 72 ml/min; Glucose 77 mg/dl (70-99); Potassium 3.5 mmol/L (3.5-5.1); Sodium 132 mmol/L (135-145); eGFR > 60.00
[2025-03-16 06:45] LABS: TSH 0.45 uIU/ml (0.47-4.68)
[2025-03-16 07:04] LABS: Vitamin B12 350 pg/ml (239-931)
[2025-03-16 07:36] VITALS: BP 159/86
[2025-03-16] MEDS: TRANDATE 100 MG PO ×3 (07:56→22:58)
[2025-03-16] MEDS: FOLVITE 1 MG PO (07:56)
[2025-03-16] MEDS: PROTONIX 40 MG PO (07:56)
[2025-03-16] MEDS: LIORESAL 20 MG PO ×4 (07:56→22:58)
[2025-03-16] MEDS: COZAAR 100 MG PO (07:56)
[2025-03-16] MEDS: MAGNESIUM OXIDE 400 MG PO (08:41)
[2025-03-16 11:38] VITALS: BMI 20.7
[2025-03-16] MEDS: NSS IV (11:48)
[2025-03-16] MEDS: SALAGEN 5 MG PO ×2 (12:42→18:24)
[2025-03-16] MEDS: FLOMAX 0.4 MG PO (12:42)
[2025-03-16] MEDS: NORCO 5/325 2 TABLET PO ×2 (13:16→20:57)
--- NOTE | 2025-03-16 14:00 | W.PN.HOSP.TC ---
Today's Communication/Plan
-
Resume IV fluids
Nutrition
PT/OT
Possible discharge tomorrow
Assessment / Plan
Assessment / Plan
69 woman with low Na and decreased PO intake, and weakness.
Hypovolemic hyponatremia
s/p IV normal saline overnight
Hold furosemide
Improved from 127-->132
Resume IV fluid
Suspect secondary to poor diet/decrease oral intake. Nutrition consult
Weakness
Likely secondary to above
PT/OT
HTN
Continue losartan, labetalol
Chronic pain
Continue [place], gabapentin, baclofen, methotrexate,
Overactive bladder
Gemtesa, Flomax
Dry mouth
Pilocarpine
Depression
Viibryd
Quetiapine PRN sleep
Migraines
Emgality
DVT ppx
Lovenox
Anticipated Discharge: Within 24 hours
Subjective/Interval History
-
Date of Service: March 16, 2025
Patient states she has a very dry mouth, states she does not eat very much at home but she does eat usually fruit, cheese, sometimes sweet potatoes
Objective Data
-
Labs:
Laboratory Results
03/16/25
05:12
WBC 4.9
Hgb 11.2 L
Hct 33.6 L
Plt Count 199
Sodium 132 L
Potassium 3.5
Chloride 104
Carbon Dioxide 26
BUN 10
Creatinine 0.6
Glucose 77
Calcium 8.3 L
Vital Signs:
Vital Signs
Temp Pulse Resp BP Pulse Ox
97.6 F 81 18 159/86 96
03/16/25 07:36 03/16/25 07:36 03/16/25 07:36 03/16/25 07:36 03/16/25 07:36
I&O
03/15/25 03/16/25 03/17/25
06:59 06:59 06:59
Output Total 800 / 800
Balance -800 / -800
Review of Systems
-
History Source: Patient
All other systems: Reviewed and negative
Data Reviewed
-
CT Scan: Report Reviewed by me
Labs: Labs Reviewed by me and Discussed with Patient
[2025-03-16 14:50] VITALS: BP 136/76; PULSE 93
[2025-03-16 15:11] VITALS: BP 136/76
--- NOTE | 2025-03-16 17:10 | CM ---
Alert awake oriented patient who lives alone in a 2 story home with 2 steps to enter and 10 steps to bed/bathroom. She is independent in activates of daily living.She does drive .She used a cane.
[facility] in past . [facility] hx
Pharmacy [facility]
PCP Carol
PLAN Home with Out Pt PT
[2025-03-16] MEDS: LOVENOX 40 MG SC (17:50)
[2025-03-16] MEDS: LIPITOR 20 MG PO (17:50)
[2025-03-16 23:00] VITALS: BP 157/80
[2025-03-17] MEDS: SALAGEN PO (00:48)
[2025-03-17] MEDS: NSS 1000 IV (00:49)
[2025-03-17] MEDS: NORCO 5/325 2 TABLET PO ×2 (05:15→12:03)
[2025-03-17] MEDS: SALAGEN 5 MG PO ×2 (05:16→12:00)
[2025-03-17 05:45] LABS: Hematocrit 31.7 % (37.0-47.0); Hemoglobin 11.0 g/dL (12.0-16.0); Mean Corp Hgb Conc. 34.7 g/dL (33.0-37.0); Mean Corpuscular Volume 94.1 fL (81.0-99.0); Platelet Count 170 10^3/uL (130-400); Red Cell Dist. Width 12.5 % (11.5-14.5)
[2025-03-17 06:03] LABS: Blood Urea Nitrogen 7 mg/dl (7-17); Calcium 8.5 mg/dl (8.4-10.2); Carbon Dioxide 26 mmol/L (22-30); Chloride 106 mmol/L (98-107); Estimated Creatinine Clearance 72 ml/min; Glucose 89 mg/dl (70-99); Potassium 3.5 mmol/L (3.5-5.1); Sodium 134 mmol/L (135-145); eGFR > 60.00
[2025-03-17 07:00] VITALS: BP 155/82
[2025-03-17] MEDS: LIORESAL 20 MG PO ×2 (07:56→12:00)
[2025-03-17] MEDS: COZAAR 100 MG PO (07:56)
[2025-03-17] MEDS: MAGNESIUM OXIDE 400 MG PO (07:56)
[2025-03-17] MEDS: PROTONIX 40 MG PO (07:57)
[2025-03-17] MEDS: FLOMAX 0.4 MG PO (07:57)
[2025-03-17] MEDS: FOLVITE 1 MG PO (07:57)
[2025-03-17] MEDS: TRANDATE 100 MG PO (07:57)
[2025-03-17] MEDS: TYLENOL 650 MG PO (08:19)
--- NOTE | 2025-03-17 09:16 | PN.CDI ---
CDI
- -
CDI:
Physician Documentation Request
Admit Date: 03/15/25 23:54
Dear Doctor Parish,
Please review the following and provide your response in the progress notes.
Clinical Indicators:
- Patient admit for hypovolemic hyponatremia
- per H&P home medication hydrocodone/acetaminophen PRN since 02/25/22
- 2 tablets Hiko given x 3
- 03/16 PN 'Chronic pain...Continue Hiko, gabapentin, baclofen, methotrexate'
If possible, please provide further specificity as outlined below:
Opioid use with dependence
Opioid dependence
Other (please specify)
Use of terms such as suspected, likely, concern for, or probable (associated with a specific diagnosis that is being evaluated, monitored, or treated as if it exists) are acceptable and can be coded in the inpatient setting, when documented at the
time of discharge.
Thank you,
Sterling Mayfield RN
CDI Specialist
Please use your independent medical judgment in providing your response.
--- NOTE | 2025-03-17 13:17 | W.DCSUMMARY ---
Discharge Summary
Discharge Data
Date of Admission: 03/15/25
Date of Discharge: 03/17/25
Total time spent discharging patient (in min): 31
-
Pending Results: No
Hospital Course
Attending physician on day of discharge:
Nikole Lugo MD
Discharge diagnosis:
Hypovolemic hyponatremia
Secondary diagnoses:
Weakness
HTN
Chronic pain
OAB
Dry mouth
Consultations:
none
Procedures:
none
Hospital course:
69F with chronic dry mouth, depression, p/w decreased PO intake, and weakness. She was found to have hypovolemic hyponatremia, was treated with IV normal saline and sodium improved from 127->134. Her furosemide was held. She was seen by nutrition
who recommended a more balanced diet. She was discharged in stable condition to home after clearance from PT.
Diagnostic Findings:
Physical exam on discharge:
Gen: NAD
HEENT: PERRLA, EOMI, MMM, neck supple
Cards: RRR, no M/G/R
Resp: Lungs CTAB, no W/R/R
GI: soft, NT/ND/NABS
MSK: No edema
Skin: warm and dry, no rash, ulcer or lesions
Heme: No LAD
Psych: Calm
Neuro: AAOx3
Discharge disposition:
Home
Discharge Plan
-
Patient Disposition: Home (Routine Discharge)
Discharge Diagnosis/Procedures: Hyponatremia
Diet: Regular
Activity: As tolerated
Other Services: PT, OT and ST
Instructions: Dehydration and hypovolemia in adults
Referrals:
primary care doctor [Other] - in one week
UNKNOWN - PT DOES,NOT KNOW [Family Provider]
Additional Discharge Medication Instructions: OK TO RESUME PT/OT/ST OUTPATIENT
Prescriptions:
Continued
vilazodone [Viibryd] 40 MG tablet
40 mg PO DAILY
atorvastatin 20 mg tablet
20 mg PO QPM
hydrocodone-acetaminophen 10-325 mg tablet
1 tab PO Q6HPRN PRN (Reason: moderate pain)
quetiapine 25 mg Tablet
25 mg PO HSPRN PRN (Reason: sleep)
baclofen 10 mg Tablet
20 mg PO QID
gabapentin 100 mg Capsule
100 mg PO QIDPRN PRN (Reason: nerve pain)
losartan 50 mg Tablet
100 mg PO DAILY
methotrexate sodium 2.5 mg Tablet
10 mg PO FR
folic acid 1 mg Tablet
1 mg PO DAILY
labetalol 200 mg Tablet
100 mg PO TID
pantoprazole 40 mg Tablet,Delayed Release (Dr/Ec)
40 mg PO DAILY
magnesium 100 mg Tablet
100 mg PO DAILY
estradiol 0.01 % (0.1 mg/gram) Cream
1 g VAGINAL DAILY
Prolia 60 mg/mL Syringe
60 mg SC [id number]
Emgality Pen 120 mg/mL Pen Injector
120 mg SC DAILY PRN (Reason: migraine)
Gemtesa 75 mg Tablet
75 mg PO DAILY
Discontinued
furosemide 20 mg Tablet
20 mg PO DAILY
Discharge Orders:
Discharge Patient (As Directed); Ordered 03/17/25
Ordered By: Nikole Lugo
Discharge Date and Time
Print Language: CROATIAN
--- NOTE | 2025-03-17 13:53 | CM ---
Patient is cleared for discharge to home today. Cm met with patient to provide the IMM. Patient was happy to be going home. Her son will drive her home. Natalie is going to resume outpatient PT.
Plan: Discharge to home with no identified needs at this time.
[2025-03-17 14:25] VITALS: BP 148/84
== END 2025-03-17 16:17 | disposition home or self-care (01) | DRG 641 ==
LOC: 3 WEST ACU 23:54
PROVIDERS: Nurse Practitioner; ADMITTING PHYSICIAN Internal Medicine; ATTENDING PHYSICIAN Internal Medicine; EMERGENCY PHYSICIAN Student in an Organized Health Care Education/Training Program
DX: E86.1 Hypovolemia (principal); G81.94 Hemiplegia, unspecified affecting left nondominant side; E87.1 Hypo-osmolality and hyponatremia; I10 Essential (primary) hypertension; G89.29 Other chronic pain; N32.81 Overactive bladder; F32.A Depression, unspecified; E78.00 Pure hypercholesterolemia, unspecified; M06.9 Rheumatoid arthritis, unspecified; M81.0 Age-related osteoporosis without current pathological fracture; M47.9 Spondylosis, unspecified; F10.21 Alcohol dependence, in remission; K21.9 Gastro-esophageal reflux disease without esophagitis; Z87.891 Personal history of nicotine dependence; R54 Age-related physical debility; Z86.73 Personal history of transient ischemic attack (TIA), and cerebral infarction without residual deficits
CPT/HCPCS: 70450; 80048; 80053; 81003; 81015; 82607; 84436; 84443; 85025; 85027; 92507; 93005; 97110; 97112; 97163; 99285

== ENCOUNTER 2025-03-23 12:32 | Outpatient (RCR) | payer MEDICARE, OTHER, SELFPAY | END 2025-03-23 23:59 | disposition home or self-care (01) | LOC: ROT 12:32 | PROVIDERS: ATTENDING PHYSICIAN Orthopaedic Surgery; FAMILY PHYSICIAN Family Medicine | DX: Z47.89 Encounter for other orthopedic aftercare (principal); S52.501D Unspecified fracture of the lower end of right radius, subsequent encounter for closed fracture with routine healing; Z73.6 Limitation of activities due to disability; M62.81 Muscle weakness (generalized); I69.998 Other sequelae following unspecified cerebrovascular disease | CPT/HCPCS: 97018; 97110; 97535 ==

== ENCOUNTER 2025-03-23 12:39 | Outpatient (RCR) | payer MEDICARE, OTHER, SELFPAY | END 2025-03-30 07:14 | disposition home or self-care (01) | LOC: RST 12:39 | PROVIDERS: ATTENDING PHYSICIAN Physician Assistant Surgical; FAMILY PHYSICIAN Family Medicine | DX: I69.198 Other sequelae of nontraumatic intracerebral hemorrhage (principal); Z73.6 Limitation of activities due to disability; R26.2 Difficulty in walking, not elsewhere classified; R49.0 Dysphonia; J38.5 Laryngeal spasm; R13.12 Dysphagia, oropharyngeal phase; M25.561 Pain in right knee; S83.241D Other tear of medial meniscus, current injury, right knee, subsequent encounter; M70.41 Prepatellar bursitis, right knee; M62.81 Muscle weakness (generalized); R26.89 Other abnormalities of gait and mobility; M25.552 Pain in left hip; I69.254 Hemiplegia and hemiparesis following other nontraumatic intracranial hemorrhage affecting left non-dominant side | CPT/HCPCS: 92507; 92526; 97110; 97112; 97530 ==